=== PATIENT | male | born 1980 | race Two or more races ===

== ENCOUNTER 2020-07-21 12:35 | Inpatient (IN) | payer MEDICAID, OTHER ==
[~2020-07-21] VITALS: Ht 172.7 cm; Wt 91.0 kg
[2020-07-21] MEDS ORDERED: SODIUM CHLORIDE 0.9% 1,000 ML IV ONE (13:00)
[2020-07-21 13:38] LABS: Basophils # (auto) 0 10 ^3/uL (0-0.2); Basophils % (auto) 0.1 % (0.0-2.0); Eosinophils # (auto) 0 10 ^3/uL (0-0.8); Hematocrit 40.1 % (41.0-53.0); Lymphocytes # (auto) 1.1 10 ^3/uL (0.4-5.4); Lymphocytes % (auto) 6.7 % (10.0-50.0); Mean Corpuscular Hemoglobin 31.7 pg (28.0-32.0); Mean Corpuscular Hgb Conc. 34.9 g/dL (32.0-36.0); Mean Corpuscular Volume 90.8 fL (80.0-100.0); Monocytes # (auto) 0.5 10 ^3/uL (0-1.3); Monocytes % (auto) 2.8 % (0.0-12.0); Neutrophils # (auto) 14.5 10 ^3/uL (1.6-8.6); Neutrophils % (auto) 90.4 % (37.0-80.0); Nucleated Red Blood Cells % 0.2 %; Red Blood Cells 4.42 10^6/uL (4.5-5.90); Red Cell Distribution Width 13.6 % (11.8-14.3)
[2020-07-21 13:54] LABS: Carbon Dioxide 22 mmol/L (21-32); Chloride 103 mmol/L (98-107); Potassium 3.3 mmol/L (3.5-5.1); Sodium 138 mmol/L (136-145)
[2020-07-21 13:55] LABS: Albumin 3.1 g/dL (3.4-5.0); Anion Gap 13 (5-15); Blood Urea Nitrogen 24 mg/dL (7-18); Calcium 8.9 mg/dL (8.5-10.1); Glucose 107 mg/dL (74-106)
[2020-07-21 14:02] LABS: Alanine Aminotransferase 49 U/L (16-61); Alkaline Phosphatase 96 U/L (45-117); Aspartate Aminotransferase 75 U/L (15-37); BUN/Creatinine Ratio 20.7; Bilirubin, Total 0.4 mg/dL (0.2-1.0); GFR African American 90 mL/min; GFR Non-African American 74 mL/min; Lactate Dehydrogenase 952 U/L (87-241); Total Protein 7.6 g/dL (6.4-8.2)
[2020-07-21 14:06] LABS: Lactic Acid w/Reflex 2.8 mmol/L (0.4-2.0)
[2020-07-21] MEDS ORDERED: POTASSIUM CHL 20 Meq TABLET PO ONE (14:45)
[2020-07-21] MEDS ORDERED: ALBUTEROL SULF HFA 90MCG INH 200DOSE IN PRN (14:45)
[2020-07-21] MEDS ORDERED: NITROGLYCERIN 0.4 MG SL TAB SL PRN (14:45)
[2020-07-21] MEDS ORDERED: MORPHINE SULFATE INJECTION 2 MG/ML SYRG IV PRN (14:45)
[2020-07-21] MEDS ORDERED: IOHEXOL 350 MG/ML 100ML IJ ONE (15:24)
[2020-07-21] MEDS ORDERED: ETOMIDATE (2MG/ML) 20ML VIAL IV ONE ×2 (16:06→16:15)
[2020-07-21] MEDS ORDERED: SUCCINYLCHOLINE CHLORIDE 20 MG/ML 10ML VIAL IV ONE ×2 (16:06→16:15)
[2020-07-21] MEDS ORDERED: MIDAZOLAM DRIP 50 mg/50mL 50 ML IV ONE (16:08)
[2020-07-21] MEDS ORDERED: PROPOFOL 100 ML IV ONE (16:23)
[2020-07-21] MEDS ORDERED: fentaNYL Drip 2500mCg/250mlNS 250 ML IV ONE (16:23)
[2020-07-21] MEDS ORDERED: FUROSEMIDE 20 MG/2 ML VIAL IV ONE (16:45)
[2020-07-21] MEDS ORDERED: NOREPINEPHRINE 8 MG/250ML KIT 250 ML IV ONE (16:45)
[2020-07-21] MEDS: MIDAZOLAM DRIP 50 mg/50mL 50 ML IV SCH ×2 (16:55→18:51)
[2020-07-21 17:01] VITALS: BP 152/73
[2020-07-21] MEDS: PROPOFOL 100 ML IV SCH ×2 (17:04→18:50)
[2020-07-21] MEDS: fentaNYL Drip 2500mCg/250mlNS 250 ML IV SCH (17:05)
[2020-07-21] MEDS: NOREPINEPHRINE 8 MG/250ML KIT 250 ML IV SCH (17:20)
[2020-07-21] MEDS: PIPERACILLIN-TAZOB 3.375GM 100 ML IV SCH (17:35)
[2020-07-21] MEDS ORDERED: REMDESIVIR PER PHARMACY 0 ML IV SCH (18:15)
[2020-07-21 19:30] LABS: Urine Bacteria NONE SEEN /hpf (None Seen); Urine Blood 1+ /uL (Negative); Urine Specific Gravity 1.038 (1.001-1.035); Urine WBC 3 /hpf (0 - 3)
[2020-07-21 19:56] VITALS: BP 99/44
[2020-07-21] MEDS ORDERED: REMDESIVIR 200 MG in NS 210ml LOADING DOSE ADULT IV ONE (20:00)
[2020-07-21 20:54] LABS: Basophils # (auto) 0 10 ^3/uL (0-0.2); Basophils % (auto) 0.1 % (0.0-2.0); Eosinophils # (auto) 0 10 ^3/uL (0-0.8); Hematocrit 38.3 % (41.0-53.0); Lymphocytes # (auto) 1.1 10 ^3/uL (0.4-5.4); Lymphocytes % (auto) 7.3 % (10.0-50.0); Mean Corpuscular Hemoglobin 31.2 pg (28.0-32.0); Mean Corpuscular Hgb Conc. 34.1 g/dL (32.0-36.0); Mean Corpuscular Volume 91.7 fL (80.0-100.0); Monocytes # (auto) 0.4 10 ^3/uL (0-1.3); Monocytes % (auto) 2.5 % (0.0-12.0); Neutrophils # (auto) 13.5 10 ^3/uL (1.6-8.6); Neutrophils % (auto) 90.1 % (37.0-80.0); Nucleated Red Blood Cells % 0.1 %; Red Blood Cells 4.18 10^6/uL (4.5-5.90); Red Cell Distribution Width 13.9 % (11.8-14.3)
[2020-07-21 21:18] LABS: Calcium 8.1 mg/dL (8.5-10.1); Magnesium 2.4 mg/dL (1.6-2.6); Potassium 4.1 mmol/L (3.5-5.1)
[2020-07-21 21:23] LABS: Lactic Acid w/Reflex 2.1 mmol/L (0.4-2.0)
[2020-07-21 21:31] LABS: Albumin 2.7 g/dL (3.4-5.0); BUN/Creatinine Ratio 17.6; Bilirubin, Total 0.8 mg/dL (0.2-1.0); CRP High Sensitivity 14.9 mg/dL (< 0.3); Total Protein 6.5 g/dL (6.4-8.2)
[2020-07-21] MEDS ORDERED: methylPREDNISolone SOD SUCC 40 MG/ML VL IV ONE (22:00)
[2020-07-21] MEDS ORDERED: ACETAMINOPHEN 650 mg PER 20.3 mL UD PO ONE (22:00)
[2020-07-21] MEDS ORDERED: diphenhdrAMINE HCL 50 MG/1 ML VL IV ONE (22:00)
[2020-07-21] MEDS ORDERED: TOCILIZUMAB 400 MG in SODIUM CHL 0.9% 80 ML IV ONE (22:30)
[2020-07-21 22:45] VITALS: BP 118/63
[2020-07-21] MEDS: BUDESONIDE (INHALATION) 180 MCG IH IN SCH (22:45)
[2020-07-21] MEDS: ENOXAPARIN SOD 40 MG/0.4 ML SYRINGE SC SCH (22:48)
[2020-07-21 23:30] VITALS: BP 107/57
[2020-07-21 23:45] VITALS: BP 111/61
[2020-07-22] VITALS (97 sets, daily range): BP systolic 97–144; BP diastolic 47–119
[2020-07-22] MEDS: PIPERACILLIN-TAZOB 3.375GM 100 ML IV SCH ×4 (00:24→19:17)
[2020-07-22] MEDS: PROPOFOL 100 ML IV SCH ×3 (00:25→21:30)
[2020-07-22] MEDS: MIDAZOLAM DRIP 50 mg/50mL 50 ML IV SCH ×6 (00:26→22:57)
[2020-07-22 04:54] LABS: Basophils # (auto) 0 10 ^3/uL (0-0.2); Basophils % (auto) 0.1 % (0.0-2.0); Eosinophils # (auto) 0 10 ^3/uL (0-0.8); Hematocrit 39.9 % (41.0-53.0); Hemoglobin 13.4 g/dL (13.5-17.5); Lymphocytes # (auto) 0.6 10 ^3/uL (0.4-5.4); Lymphocytes % (auto) 4.5 % (10.0-50.0); Mean Corpuscular Hemoglobin 31.4 pg (28.0-32.0); Mean Corpuscular Hgb Conc. 33.7 g/dL (32.0-36.0); Mean Corpuscular Volume 93.3 fL (80.0-100.0); Monocytes # (auto) 0.4 10 ^3/uL (0-1.3); Monocytes % (auto) 2.6 % (0.0-12.0); Neutrophils # (auto) 12.9 10 ^3/uL (1.6-8.6); Neutrophils % (auto) 92.8 % (37.0-80.0); Nucleated Red Blood Cells % 0.1 %; Red Blood Cells 4.28 10^6/uL (4.5-5.90); Red Cell Distribution Width 14.1 % (11.8-14.3); White Blood Cell 13.9 10^3/uL (4.4-10.8)
[2020-07-22 05:25] LABS: Albumin 2.8 g/dL (3.4-5.0); Calcium 8.2 mg/dL (8.5-10.1); Potassium 4.6 mmol/L (3.5-5.1)
[2020-07-22 05:28] LABS: BUN/Creatinine Ratio 17.2; Bilirubin, Total 0.5 mg/dL (0.2-1.0)
[2020-07-22] MEDS: fentaNYL Drip 2500mCg/250mlNS 250 ML IV SCH ×2 (05:38→22:16)
[2020-07-22] MEDS ORDERED: IVERMECTIN 3 MG TAB PO ONE (07:00)
[2020-07-22] MEDS: BUDESONIDE (INHALATION) 180 MCG IH IN SCH (10:00)
[2020-07-22] MEDS: ENOXAPARIN SOD 40 MG/0.4 ML SYRINGE SC SCH ×2 (10:14→21:29)
[2020-07-22] MEDS: CHOLECALCIFEROL (VITD3) 2,000 UNIT CAP/TAB PO SCH (10:15)
[2020-07-22] MEDS: ASCORBIC ACID 1,000 MG TAB PO SCH (10:15)
[2020-07-22] MEDS: FLORASTOR (S. BOULARDII) 250 MG CAP PO SCH (10:15)
[2020-07-22] MEDS: DexAMETHasone SOD PHOS 10MG/1ML VIAL INJ IV SCH (10:15)
[2020-07-22] MEDS: ZINC SULFATE 220mg CAP or TAB PO SCH (10:15)
[2020-07-22] MEDS: NOREPINEPHRINE 8 MG/250ML KIT 250 ML IV SCH (15:14)
[2020-07-22] MEDS: REMDESIVIR 100mg 100 MG in SODIUM CHL 0.9% 230 ML IV SCH (15:30)
[2020-07-23] VITALS (87 sets, daily range): BP systolic 94–129; BP diastolic 46–78
[2020-07-23] MEDS: PIPERACILLIN-TAZOB 3.375GM 100 ML IV SCH ×4 (00:41→18:22)
[2020-07-23] MEDS: PROPOFOL 100 ML IV SCH ×4 (01:10→22:26)
[2020-07-23] MEDS: NOREPINEPHRINE 8 MG/250ML KIT 250 ML IV SCH (02:10)
[2020-07-23 05:15] LABS: Basophils # (auto) 0 10 ^3/uL (0-0.2); Basophils % (auto) 0.3 % (0.0-2.0); Eosinophils # (auto) 0 10 ^3/uL (0-0.8); Hematocrit 38.6 % (41.0-53.0); Lymphocytes # (auto) 0.9 10 ^3/uL (0.4-5.4); Lymphocytes % (auto) 5.3 % (10.0-50.0); Mean Corpuscular Hemoglobin 31.3 pg (28.0-32.0); Mean Corpuscular Hgb Conc. 33.6 g/dL (32.0-36.0); Mean Corpuscular Volume 93.3 fL (80.0-100.0); Monocytes # (auto) 0.8 10 ^3/uL (0-1.3); Monocytes % (auto) 4.9 % (0.0-12.0); Neutrophils # (auto) 15.2 10 ^3/uL (1.6-8.6); Neutrophils % (auto) 89.5 % (37.0-80.0); Nucleated Red Blood Cells % 0.1 %; Red Blood Cells 4.14 10^6/uL (4.5-5.90); Red Cell Distribution Width 14.2 % (11.8-14.3)
[2020-07-23 05:35] LABS: Potassium 4.7 mmol/L (3.5-5.1)
[2020-07-23 05:41] LABS: Albumin 2.6 g/dL (3.4-5.0); BUN/Creatinine Ratio 21.2; Bilirubin, Total 0.5 mg/dL (0.2-1.0); Calcium 8.5 mg/dL (8.5-10.1); Total Protein 6.6 g/dL (6.4-8.2)
[2020-07-23] MEDS: MIDAZOLAM DRIP 50 mg/50mL 50 ML IV SCH ×3 (05:43→17:26)
[2020-07-23] MEDS: BUDESONIDE (INHALATION) 0.5 MG/2 ML NEB NEB SCH ×2 (06:17→18:53)
[2020-07-23] MEDS: ALBUTEROL SULF 2.5 MG/0.5ML(0.5%) NEB SOLN NEB PRN ×2 (06:17→18:53)
[2020-07-23] MEDS: fentaNYL Drip 2500mCg/250mlNS 250 ML IV SCH ×2 (09:30→19:15)
[2020-07-23] MEDS: DexAMETHasone SOD PHOS 10MG/1ML VIAL INJ IV SCH (10:19)
[2020-07-23] MEDS: ZINC SULFATE 220mg CAP or TAB PO SCH (10:19)
[2020-07-23] MEDS: ASCORBIC ACID 1,000 MG TAB PO SCH (10:21)
[2020-07-23] MEDS: ENOXAPARIN SOD 40 MG/0.4 ML SYRINGE SC SCH ×2 (10:21→22:27)
[2020-07-23] MEDS: CHOLECALCIFEROL (VITD3) 2,000 UNIT CAP/TAB PO SCH (10:21)
[2020-07-23] MEDS: FLORASTOR (S. BOULARDII) 250 MG CAP PO SCH (10:21)
[2020-07-23] MEDS ORDERED: SENNA 8.6 MG TAB PO ONE (11:15)
[2020-07-23] MEDS: REMDESIVIR 100mg 100 MG in SODIUM CHL 0.9% 230 ML IV SCH (15:29)
[2020-07-23] MEDS: SENNA 8.6 MG TAB PO SCH (22:27)
[2020-07-24] VITALS (87 sets, daily range): BP systolic 91–127; BP diastolic 48–82
[2020-07-24] MEDS: PROPOFOL 100 ML IV SCH ×4 (04:45→19:49)
[2020-07-24 05:48] LABS: Hematocrit 38.4 % (41.0-53.0); Mean Corpuscular Hemoglobin 31.6 pg (28.0-32.0); Mean Corpuscular Hgb Conc. 33.9 g/dL (32.0-36.0); Mean Corpuscular Volume 93.3 fL (80.0-100.0); Red Blood Cells 4.12 10^6/uL (4.5-5.90); Red Cell Distribution Width 14.1 % (11.8-14.3); White Blood Cell 13.5 10^3/uL (4.4-10.8)
[2020-07-24] MEDS: PIPERACILLIN-TAZOB 3.375GM 100 ML IV SCH ×3 (06:00→12:00)
[2020-07-24 06:05] LABS: Albumin 2.4 g/dL (3.4-5.0); Calcium 7.9 mg/dL (8.5-10.1); Potassium 4.7 mmol/L (3.5-5.1)
[2020-07-24 06:07] LABS: BUN/Creatinine Ratio 22.2; Bilirubin, Total 0.7 mg/dL (0.2-1.0); Total Protein 6.2 g/dL (6.4-8.2)
[2020-07-24 06:23] LABS: Basophils % (manual) 0 (0.0-2.0); Blast Cells 0; Monocytes % (manual) 0 (0-12); Promyelocytes % 0; Reactive Lymphocytes 0
[2020-07-24] MEDS: ALBUTEROL SULF 2.5 MG/0.5ML(0.5%) NEB SOLN NEB PRN (06:35)
[2020-07-24] MEDS: BUDESONIDE (INHALATION) 0.5 MG/2 ML NEB NEB SCH ×2 (06:36→18:37)
[2020-07-24 06:45] LABS: Band Neutrophils % (manual) 8; Eosinophils % (manual) 1 (0-7); Lymphocytes % (manual) 10 (10.0-50.0); Metamyelocytes % 3; Myelocytes % 1
[2020-07-24] MEDS: fentaNYL Drip 2500mCg/250mlNS 250 ML IV SCH ×2 (07:45→22:33)
[2020-07-24] MEDS: MIDAZOLAM DRIP 50 mg/50mL 50 ML IV SCH ×6 (08:03→23:37)
[2020-07-24] MEDS: ENOXAPARIN SOD 40 MG/0.4 ML SYRINGE SC SCH ×2 (09:57→22:27)
[2020-07-24] MEDS: DexAMETHasone SOD PHOS 10MG/1ML VIAL INJ IV SCH (09:57)
[2020-07-24] MEDS: ZINC SULFATE 220mg CAP or TAB PO SCH (09:57)
[2020-07-24] MEDS: FLORASTOR (S. BOULARDII) 250 MG CAP PO SCH (09:57)
[2020-07-24] MEDS: ASCORBIC ACID 1,000 MG TAB PO SCH (09:57)
[2020-07-24] MEDS: CHOLECALCIFEROL (VITD3) 2,000 UNIT CAP/TAB PO SCH (09:57)
[2020-07-24] MEDS: NOREPINEPHRINE 8 MG/250ML KIT 250 ML IV SCH (11:42)
[2020-07-24] MEDS: REMDESIVIR 100mg 100 MG in SODIUM CHL 0.9% 230 ML IV SCH (15:00)
[2020-07-24] MEDS: SENNA 8.6 MG TAB PO SCH (22:27)
[2020-07-25] VITALS (104 sets, daily range): BP systolic 97–131; BP diastolic 45–85
[2020-07-25] MEDS: PIPERACILLIN-TAZOB 3.375GM 100 ML IV SCH ×3 (00:05→17:32)
[2020-07-25 05:54] LABS: Hemoglobin 14.3 g/dL (13.5-17.5); Mean Corpuscular Hemoglobin 31.8 pg (28.0-32.0); Mean Corpuscular Volume 93.4 fL (80.0-100.0); Red Cell Distribution Width 13.6 % (11.8-14.3); White Blood Cell 13.4 10^3/uL (4.4-10.8)
[2020-07-25 06:10] LABS: Albumin 2.6 g/dL (3.4-5.0); Calcium 8.1 mg/dL (8.5-10.1); Potassium 4.6 mmol/L (3.5-5.1)
[2020-07-25 06:11] LABS: Basophils % (manual) 0 (0.0-2.0); Blast Cells 0; Promyelocytes % 0; Reactive Lymphocytes 0
[2020-07-25 06:19] LABS: BUN/Creatinine Ratio 18.5; Bilirubin, Total 0.8 mg/dL (0.2-1.0); CRP High Sensitivity 2.43 mg/dL (< 0.3); Total Protein 6.4 g/dL (6.4-8.2)
[2020-07-25] MEDS: ALBUTEROL SULF 2.5 MG/0.5ML(0.5%) NEB SOLN NEB PRN (06:54)
[2020-07-25] MEDS: BUDESONIDE (INHALATION) 0.5 MG/2 ML NEB NEB SCH ×2 (06:54→22:09)
[2020-07-25] MEDS: REMDESIVIR 100mg 100 MG in SODIUM CHL 0.9% 230 ML IV SCH ×2 (07:06→15:00)
[2020-07-25] MEDS: PROPOFOL 100 ML IV SCH ×5 (08:24→22:47)
[2020-07-25] MEDS: fentaNYL Drip 2500mCg/250mlNS 250 ML IV SCH ×2 (08:25→20:05)
[2020-07-25 09:49] LABS: Band Neutrophils % (manual) 6; Eosinophils % (manual) 1 (0-7); Lymphocytes % (manual) 12 (10.0-50.0); Metamyelocytes % 1; Monocytes % (manual) 1 (0-12); Myelocytes % 2
[2020-07-25] MEDS: DexAMETHasone SOD PHOS 10MG/1ML VIAL INJ IV SCH (11:01)
[2020-07-25] MEDS: ZINC SULFATE 220mg CAP or TAB PO SCH (11:02)
[2020-07-25] MEDS: FLORASTOR (S. BOULARDII) 250 MG CAP PO SCH (11:02)
[2020-07-25] MEDS: ASCORBIC ACID 1,000 MG TAB PO SCH (11:03)
[2020-07-25] MEDS: ENOXAPARIN SOD 40 MG/0.4 ML SYRINGE SC SCH ×2 (11:03→20:06)
[2020-07-25] MEDS: CHOLECALCIFEROL (VITD3) 2,000 UNIT CAP/TAB PO SCH (11:03)
[2020-07-25] MEDS: MIDAZOLAM DRIP 50 mg/50mL 50 ML IV SCH ×3 (15:15→22:47)
[2020-07-25] MEDS: SENNA 8.6 MG TAB PO SCH (20:06)
[2020-07-26] VITALS (105 sets, daily range): BP systolic 83–129; BP diastolic 41–79
[2020-07-26] MEDS: MIDAZOLAM DRIP 50 mg/50mL 50 ML IV SCH ×6 (02:30→20:50)
[2020-07-26] MEDS: PROPOFOL 100 ML IV SCH ×6 (03:23→23:35)
[2020-07-26] MEDS: ALBUTEROL SULF 2.5 MG/0.5ML(0.5%) NEB SOLN NEB PRN ×3 (04:27→14:22)
[2020-07-26 04:35] LABS: Basophils # (auto) 0.1 10 ^3/uL (0-0.2); Basophils % (auto) 0.6 % (0.0-2.0); Eosinophils # (auto) 0.3 10 ^3/uL (0-0.8); Eosinophils % (auto) 2.5 % (0.0-7.0); Hematocrit 41.7 % (41.0-53.0); Hemoglobin 14.5 g/dL (13.5-17.5); Lymphocytes # (auto) 1.2 10 ^3/uL (0.4-5.4); Lymphocytes % (auto) 8.5 % (10.0-50.0); Mean Corpuscular Hgb Conc. 34.8 g/dL (32.0-36.0); Monocytes # (auto) 0.3 10 ^3/uL (0-1.3); Monocytes % (auto) 2.2 % (0.0-12.0); Neutrophils # (auto) 11.8 10 ^3/uL (1.6-8.6); Neutrophils % (auto) 86.2 % (37.0-80.0); Nucleated Red Blood Cells % 0.2 %; Red Blood Cells 4.53 10^6/uL (4.5-5.90); Red Cell Distribution Width 13.4 % (11.8-14.3); White Blood Cell 13.7 10^3/uL (4.4-10.8)
[2020-07-26 04:48] LABS: BUN/Creatinine Ratio 23.3; Calcium 7.7 mg/dL (8.5-10.1); Potassium 4.6 mmol/L (3.5-5.1)
[2020-07-26] MEDS: PIPERACILLIN-TAZOB 3.375GM 100 ML IV SCH ×4 (06:00→17:45)
[2020-07-26] MEDS: NOREPINEPHRINE 8 MG/250ML KIT 250 ML IV SCH ×2 (06:45→08:10)
[2020-07-26] MEDS: BUDESONIDE (INHALATION) 0.5 MG/2 ML NEB NEB SCH ×2 (06:58→18:38)
[2020-07-26] MEDS: ZINC SULFATE 220mg CAP or TAB PO SCH (09:57)
[2020-07-26] MEDS: CHOLECALCIFEROL (VITD3) 2,000 UNIT CAP/TAB PO SCH (09:57)
[2020-07-26] MEDS: ASCORBIC ACID 1,000 MG TAB PO SCH (09:57)
[2020-07-26] MEDS: FLORASTOR (S. BOULARDII) 250 MG CAP PO SCH (09:57)
[2020-07-26] MEDS: ENOXAPARIN SOD 40 MG/0.4 ML SYRINGE SC SCH ×2 (09:57→22:00)
[2020-07-26] MEDS: DexAMETHasone SOD PHOS 10MG/1ML VIAL INJ IV SCH (09:57)
[2020-07-26] MEDS: fentaNYL Drip 2500mCg/250mlNS 250 ML IV SCH ×2 (09:58→22:15)
[2020-07-26] MEDS ORDERED: PANTOPRAZOLE 40 MG/10 ML VIAL INJ IV ONE ×2 (13:11→13:15)
[2020-07-26] MEDS: SENNA 8.6 MG TAB PO SCH (22:00)
[2020-07-27] VITALS (104 sets, daily range): BP systolic 89–121; BP diastolic 46–95
[2020-07-27] MEDS: MIDAZOLAM DRIP 50 mg/50mL 50 ML IV SCH ×7 (02:15→23:27)
[2020-07-27] MEDS: PIPERACILLIN-TAZOB 3.375GM 100 ML IV SCH ×3 (06:00→17:52)
[2020-07-27] MEDS: BUDESONIDE (INHALATION) 0.5 MG/2 ML NEB NEB SCH ×2 (06:14→22:25)
[2020-07-27] MEDS: NOREPINEPHRINE 8 MG/250ML KIT 250 ML IV SCH (06:24)
[2020-07-27] MEDS: PROPOFOL 100 ML IV SCH ×5 (06:26→19:30)
[2020-07-27] MEDS: ZINC SULFATE 220mg CAP or TAB PO SCH (09:58)
[2020-07-27] MEDS: PANTOPRAZOLE 40 MG/10 ML VIAL INJ IV SCH (09:58)
[2020-07-27] MEDS: DexAMETHasone SOD PHOS 10MG/1ML VIAL INJ IV SCH (09:58)
[2020-07-27] MEDS: CHOLECALCIFEROL (VITD3) 2,000 UNIT CAP/TAB PO SCH (09:58)
[2020-07-27] MEDS: FLORASTOR (S. BOULARDII) 250 MG CAP PO SCH (09:58)
[2020-07-27] MEDS: ENOXAPARIN SOD 40 MG/0.4 ML SYRINGE SC SCH ×2 (09:58→22:00)
[2020-07-27] MEDS: ASCORBIC ACID 1,000 MG TAB PO SCH (09:58)
[2020-07-27] MEDS: fentaNYL Drip 2500mCg/250mlNS 250 ML IV SCH ×2 (10:45→17:55)
[2020-07-27] MEDS: SENNA 8.6 MG TAB PO SCH (22:00)
[2020-07-27] MEDS: ALBUTEROL SULF 2.5 MG/0.5ML(0.5%) NEB SOLN NEB PRN (22:25)
[2020-07-28] VITALS (102 sets, daily range): BP systolic 86–127; BP diastolic 48–76
[2020-07-28] MEDS: NOREPINEPHRINE 8 MG/250ML KIT 250 ML IV SCH (04:38)
[2020-07-28] MEDS: BUDESONIDE (INHALATION) 0.5 MG/2 ML NEB NEB SCH ×2 (05:56→22:41)
[2020-07-28] MEDS: ALBUTEROL SULF 2.5 MG/0.5ML(0.5%) NEB SOLN NEB PRN ×2 (05:56→22:41)
[2020-07-28] MEDS: PROPOFOL 100 ML IV SCH ×5 (06:00→20:53)
[2020-07-28] MEDS: PIPERACILLIN-TAZOB 3.375GM 100 ML IV SCH ×5 (06:00→23:55)
[2020-07-28 06:02] LABS: Basophils # (auto) 0 10 ^3/uL (0-0.2); Basophils % (auto) 0.3 % (0.0-2.0); Eosinophils # (auto) 0.2 10 ^3/uL (0-0.8); Eosinophils % (auto) 1.9 % (0.0-7.0); Hematocrit 40.2 % (41.0-53.0); Hemoglobin 14.3 g/dL (13.5-17.5); Lymphocytes # (auto) 1.1 10 ^3/uL (0.4-5.4); Lymphocytes % (auto) 9.7 % (10.0-50.0); Mean Corpuscular Hemoglobin 32.7 pg (28.0-32.0); Mean Corpuscular Hgb Conc. 35.6 g/dL (32.0-36.0); Mean Corpuscular Volume 91.6 fL (80.0-100.0); Monocytes # (auto) 0.4 10 ^3/uL (0-1.3); Monocytes % (auto) 3.3 % (0.0-12.0); Neutrophils # (auto) 9.9 10 ^3/uL (1.6-8.6); Neutrophils % (auto) 84.8 % (37.0-80.0); Nucleated Red Blood Cells % 0.2 %; Red Blood Cells 4.39 10^6/uL (4.5-5.90); Red Cell Distribution Width 13.9 % (11.8-14.3); White Blood Cell 11.7 10^3/uL (4.4-10.8)
[2020-07-28 09:00] LABS: BUN/Creatinine Ratio 30.9; Calcium 7.9 mg/dL (8.5-10.1); Potassium 3.7 mmol/L (3.5-5.1)
[2020-07-28] MEDS: DexAMETHasone SOD PHOS 10MG/1ML VIAL INJ IV SCH (09:04)
[2020-07-28] MEDS: PANTOPRAZOLE 40 MG/10 ML VIAL INJ IV SCH (09:05)
[2020-07-28] MEDS: ZINC SULFATE 220mg CAP or TAB PO SCH (09:05)
[2020-07-28] MEDS: ASCORBIC ACID 1,000 MG TAB PO SCH (09:05)
[2020-07-28] MEDS: CHOLECALCIFEROL (VITD3) 2,000 UNIT CAP/TAB PO SCH (09:05)
[2020-07-28] MEDS: ENOXAPARIN SOD 40 MG/0.4 ML SYRINGE SC SCH ×2 (09:05→21:54)
[2020-07-28] MEDS: FLORASTOR (S. BOULARDII) 250 MG CAP PO SCH (09:05)
[2020-07-28] MEDS: MIDAZOLAM DRIP 50 mg/50mL 50 ML IV SCH ×3 (10:27→21:38)
[2020-07-28] MEDS ORDERED: FUROSEMIDE 20 MG/2 ML VIAL IV ONE (12:00)
[2020-07-28 14:37] LABS: Urine Bacteria NONE SEEN /hpf (None Seen); Urine Blood 2+ /uL (Negative); Urine Budding Yeast MODERATE /hpf (None Seen); Urine Specific Gravity 1.015 (1.001-1.035); Urine WBC 2 /hpf (0 - 3)
[2020-07-28] MEDS: fentaNYL Drip 2500mCg/250mlNS 250 ML IV SCH (18:07)
[2020-07-28] MEDS: SENNA 8.6 MG TAB PO SCH (21:53)
[2020-07-29] VITALS (105 sets, daily range): BP systolic 84–133; BP diastolic 40–80
[2020-07-29] MEDS: fentaNYL Drip 2500mCg/250mlNS 250 ML IV SCH ×3 (00:15→18:30)
[2020-07-29] MEDS: PROPOFOL 100 ML IV SCH ×6 (00:16→20:11)
[2020-07-29] MEDS: NOREPINEPHRINE 8 MG/250ML KIT 250 ML IV SCH (02:52)
[2020-07-29] MEDS: MIDAZOLAM DRIP 50 mg/50mL 50 ML IV SCH ×4 (03:22→19:15)
[2020-07-29 04:48] LABS: Basophils # (auto) 0 10 ^3/uL (0-0.2); Basophils % (auto) 0.5 % (0.0-2.0); Eosinophils # (auto) 0.2 10 ^3/uL (0-0.8); Eosinophils % (auto) 1.7 % (0.0-7.0); Hematocrit 38.3 % (41.0-53.0); Hemoglobin 13.6 g/dL (13.5-17.5); Lymphocytes # (auto) 1.1 10 ^3/uL (0.4-5.4); Lymphocytes % (auto) 10.7 % (10.0-50.0); Mean Corpuscular Hemoglobin 32.7 pg (28.0-32.0); Mean Corpuscular Hgb Conc. 35.6 g/dL (32.0-36.0); Mean Corpuscular Volume 91.8 fL (80.0-100.0); Monocytes # (auto) 0.4 10 ^3/uL (0-1.3); Monocytes % (auto) 4.3 % (0.0-12.0); Neutrophils # (auto) 8.6 10 ^3/uL (1.6-8.6); Neutrophils % (auto) 82.8 % (37.0-80.0); Nucleated Red Blood Cells % 0.2 %; Red Blood Cells 4.17 10^6/uL (4.5-5.90); Red Cell Distribution Width 13.7 % (11.8-14.3); White Blood Cell 10.3 10^3/uL (4.4-10.8)
[2020-07-29 05:06] LABS: Calcium 7.4 mg/dL (8.5-10.1); Potassium 3.6 mmol/L (3.5-5.1)
[2020-07-29 05:09] LABS: BUN/Creatinine Ratio 28.8; CRP High Sensitivity 0.85 mg/dL (< 0.3)
[2020-07-29] MEDS: PIPERACILLIN-TAZOB 3.375GM 100 ML IV SCH ×4 (06:08→23:42)
[2020-07-29] MEDS: BUDESONIDE (INHALATION) 0.5 MG/2 ML NEB NEB SCH ×2 (06:31→22:07)
[2020-07-29] MEDS: ALBUTEROL SULF 2.5 MG/0.5ML(0.5%) NEB SOLN NEB PRN ×2 (06:31→22:07)
[2020-07-29] MEDS: FLORASTOR (S. BOULARDII) 250 MG CAP PO SCH (10:23)
[2020-07-29] MEDS: DexAMETHasone SOD PHOS 10MG/1ML VIAL INJ IV SCH (10:24)
[2020-07-29] MEDS: PANTOPRAZOLE 40 MG/10 ML VIAL INJ IV SCH (10:24)
[2020-07-29] MEDS: CHOLECALCIFEROL (VITD3) 2,000 UNIT CAP/TAB PO SCH (10:24)
[2020-07-29] MEDS: FUROSEMIDE 20 MG/2 ML VIAL IV SCH (10:24)
[2020-07-29] MEDS: ENOXAPARIN SOD 40 MG/0.4 ML SYRINGE SC SCH ×2 (10:24→22:10)
[2020-07-29] MEDS: ZINC SULFATE 220mg CAP or TAB PO SCH (10:24)
[2020-07-29] MEDS: ASCORBIC ACID 1,000 MG TAB PO SCH (10:25)
[2020-07-29] MEDS: SENNA 8.6 MG TAB PO SCH (22:10)
[2020-07-30] VITALS (98 sets, daily range): BP systolic 89–121; BP diastolic 50–81
[2020-07-30] MEDS: PROPOFOL 100 ML IV SCH ×6 (00:10→19:54)
[2020-07-30] MEDS: MIDAZOLAM DRIP 50 mg/50mL 50 ML IV SCH ×7 (00:15→23:00)
[2020-07-30] MEDS: NOREPINEPHRINE 8 MG/250ML KIT 250 ML IV SCH ×2 (01:06→23:20)
[2020-07-30 06:00] LABS: Basophils # (auto) 0 10 ^3/uL (0-0.2); Basophils % (auto) 0.4 % (0.0-2.0); Eosinophils # (auto) 0.2 10 ^3/uL (0-0.8); Eosinophils % (auto) 1.6 % (0.0-7.0); Hematocrit 40.3 % (41.0-53.0); Hemoglobin 14.3 g/dL (13.5-17.5); Lymphocytes # (auto) 1.2 10 ^3/uL (0.4-5.4); Lymphocytes % (auto) 11.1 % (10.0-50.0); Mean Corpuscular Hemoglobin 32.6 pg (28.0-32.0); Mean Corpuscular Hgb Conc. 35.5 g/dL (32.0-36.0); Mean Corpuscular Volume 91.8 fL (80.0-100.0); Monocytes # (auto) 0.5 10 ^3/uL (0-1.3); Monocytes % (auto) 4.7 % (0.0-12.0); Neutrophils % (auto) 82.2 % (37.0-80.0); Nucleated Red Blood Cells % 0.2 %; Red Blood Cells 4.39 10^6/uL (4.5-5.90); Red Cell Distribution Width 13.7 % (11.8-14.3); White Blood Cell 10.9 10^3/uL (4.4-10.8)
[2020-07-30] MEDS: PIPERACILLIN-TAZOB 3.375GM 100 ML IV SCH ×4 (06:06→23:39)
[2020-07-30] MEDS: BUDESONIDE (INHALATION) 0.5 MG/2 ML NEB NEB SCH ×2 (06:17→22:23)
[2020-07-30] MEDS: ALBUTEROL SULF 2.5 MG/0.5ML(0.5%) NEB SOLN NEB PRN (06:17)
[2020-07-30 06:23] LABS: Potassium 3.6 mmol/L (3.5-5.1)
[2020-07-30 06:30] LABS: BUN/Creatinine Ratio 25.4; Calcium 7.9 mg/dL (8.5-10.1)
[2020-07-30] MEDS: FLORASTOR (S. BOULARDII) 250 MG CAP PO SCH (10:00)
[2020-07-30] MEDS: ZINC SULFATE 220mg CAP or TAB PO SCH (10:37)
[2020-07-30] MEDS: PANTOPRAZOLE 40 MG/10 ML VIAL INJ IV SCH (10:37)
[2020-07-30] MEDS: FUROSEMIDE 20 MG/2 ML VIAL IV SCH (10:37)
[2020-07-30] MEDS: DexAMETHasone SOD PHOS 10MG/1ML VIAL INJ IV SCH (10:37)
[2020-07-30] MEDS: ENOXAPARIN SOD 40 MG/0.4 ML SYRINGE SC SCH ×2 (10:38→21:59)
[2020-07-30] MEDS: CHOLECALCIFEROL (VITD3) 2,000 UNIT CAP/TAB PO SCH (10:38)
[2020-07-30] MEDS: ASCORBIC ACID 1,000 MG TAB PO SCH (10:38)
[2020-07-30] MEDS ORDERED: Jevity 1.2 Cal/Fiber 1 Liter GT SCH (11:15)
[2020-07-30] MEDS: METOCLOPRAMIDE HCL 5MG/ml INJ 2ml VIAL IV SCH ×2 (14:00→21:59)
[2020-07-30] MEDS: fentaNYL Drip 2500mCg/250mlNS 250 ML IV SCH (18:09)
[2020-07-30] MEDS: SENNA 8.6 MG TAB PO SCH (21:59)
[2020-07-31] VITALS (98 sets, daily range): BP systolic 75–122; BP diastolic 47–82
[2020-07-31] MEDS: PROPOFOL 100 ML IV SCH ×6 (03:30→20:37)
[2020-07-31 04:25] LABS: Basophils # (auto) 0.1 10 ^3/uL (0-0.2); Basophils % (auto) 0.8 % (0.0-2.0); Eosinophils # (auto) 0.2 10 ^3/uL (0-0.8); Eosinophils % (auto) 1.5 % (0.0-7.0); Hemoglobin 13.5 g/dL (13.5-17.5); Lymphocytes # (auto) 1.3 10 ^3/uL (0.4-5.4); Lymphocytes % (auto) 12.6 % (10.0-50.0); Mean Corpuscular Hemoglobin 32.4 pg (28.0-32.0); Mean Corpuscular Hgb Conc. 35.4 g/dL (32.0-36.0); Mean Corpuscular Volume 91.6 fL (80.0-100.0); Monocytes # (auto) 0.5 10 ^3/uL (0-1.3); Monocytes % (auto) 5.1 % (0.0-12.0); Neutrophils # (auto) 8.5 10 ^3/uL (1.6-8.6); Nucleated Red Blood Cells % 0.2 %; Red Blood Cells 4.16 10^6/uL (4.5-5.90); Red Cell Distribution Width 13.6 % (11.8-14.3); White Blood Cell 10.7 10^3/uL (4.4-10.8)
[2020-07-31] MEDS: fentaNYL Drip 2500mCg/250mlNS 250 ML IV SCH ×3 (04:42→16:39)
[2020-07-31 04:43] LABS: BUN/Creatinine Ratio 22.6; Calcium 7.2 mg/dL (8.5-10.1); Potassium 3.5 mmol/L (3.5-5.1)
[2020-07-31] MEDS: PIPERACILLIN-TAZOB 3.375GM 100 ML IV SCH ×3 (05:53→18:00)
[2020-07-31] MEDS: METOCLOPRAMIDE HCL 5MG/ml INJ 2ml VIAL IV SCH ×3 (05:55→22:04)
[2020-07-31] MEDS: MIDAZOLAM DRIP 50 mg/50mL 50 ML IV SCH ×4 (06:13→22:02)
[2020-07-31] MEDS: ALBUTEROL SULF 2.5 MG/0.5ML(0.5%) NEB SOLN NEB PRN ×2 (06:23→22:30)
[2020-07-31] MEDS: POTASSIUM EFFERVESENT TAB 25 MEQ GT SCH (10:00)
[2020-07-31] MEDS: ASCORBIC ACID 1,000 MG TAB PO SCH (10:00)
[2020-07-31] MEDS: ZINC SULFATE 220mg CAP or TAB PO SCH (10:00)
[2020-07-31] MEDS: PANTOPRAZOLE 40 MG/10 ML VIAL INJ IV SCH (10:00)
[2020-07-31] MEDS: BUDESONIDE (INHALATION) 0.5 MG/2 ML NEB NEB SCH ×2 (10:00→22:30)
[2020-07-31] MEDS: FUROSEMIDE 20 MG/2 ML VIAL IV SCH (10:00)
[2020-07-31] MEDS: CHOLECALCIFEROL (VITD3) 2,000 UNIT CAP/TAB PO SCH (10:00)
[2020-07-31] MEDS: DexAMETHasone SOD PHOS 10MG/1ML VIAL INJ IV SCH (10:00)
[2020-07-31] MEDS: FLORASTOR (S. BOULARDII) 250 MG CAP PO SCH (10:00)
[2020-07-31] MEDS: ENOXAPARIN SOD 40 MG/0.4 ML SYRINGE SC SCH ×2 (10:00→22:04)
[2020-07-31] MEDS: NOREPINEPHRINE 8 MG/250ML KIT 250 ML IV SCH (21:34)
[2020-07-31] MEDS: SENNA 8.6 MG TAB PO SCH (22:04)
[2020-08-01] VITALS (99 sets, daily range): BP systolic 87–131; BP diastolic 49–79
[2020-08-01] MEDS: PIPERACILLIN-TAZOB 3.375GM 100 ML IV SCH ×4 (00:11→18:00)
[2020-08-01] MEDS: MIDAZOLAM DRIP 50 mg/50mL 50 ML IV SCH ×6 (01:48→23:30)
[2020-08-01 04:28] LABS: Basophils # (auto) 0 10 ^3/uL (0-0.2); Basophils % (auto) 0.4 % (0.0-2.0); Eosinophils # (auto) 0 10 ^3/uL (0-0.8); Eosinophils % (auto) 0.5 % (0.0-7.0); Hematocrit 38.5 % (41.0-53.0); Hemoglobin 13.5 g/dL (13.5-17.5); Lymphocytes # (auto) 1.1 10 ^3/uL (0.4-5.4); Lymphocytes % (auto) 11.5 % (10.0-50.0); Mean Corpuscular Hemoglobin 32.1 pg (28.0-32.0); Mean Corpuscular Volume 91.5 fL (80.0-100.0); Monocytes # (auto) 0.6 10 ^3/uL (0-1.3); Monocytes % (auto) 5.9 % (0.0-12.0); Neutrophils # (auto) 7.7 10 ^3/uL (1.6-8.6); Neutrophils % (auto) 81.7 % (37.0-80.0); Nucleated Red Blood Cells % 0.1 %; Red Blood Cells 4.21 10^6/uL (4.5-5.90); Red Cell Distribution Width 13.5 % (11.8-14.3); White Blood Cell 9.4 10^3/uL (4.4-10.8)
[2020-08-01] MEDS: PROPOFOL 100 ML IV SCH ×6 (04:38→19:42)
[2020-08-01] MEDS: fentaNYL Drip 2500mCg/250mlNS 250 ML IV SCH ×2 (05:07→16:49)
[2020-08-01 05:12] LABS: BUN/Creatinine Ratio 23.7; Calcium 8.2 mg/dL (8.5-10.1); Potassium 3.6 mmol/L (3.5-5.1)
[2020-08-01] MEDS: METOCLOPRAMIDE HCL 5MG/ml INJ 2ml VIAL IV SCH ×3 (06:04→22:28)
[2020-08-01] MEDS: BUDESONIDE (INHALATION) 0.5 MG/2 ML NEB NEB SCH ×2 (07:06→22:42)
[2020-08-01] MEDS: POTASSIUM EFFERVESENT TAB 25 MEQ GT SCH (10:08)
[2020-08-01] MEDS: DexAMETHasone SOD PHOS 10MG/1ML VIAL INJ IV SCH (10:08)
[2020-08-01] MEDS: ZINC SULFATE 220mg CAP or TAB PO SCH (10:09)
[2020-08-01] MEDS: PANTOPRAZOLE 40 MG/10 ML VIAL INJ IV SCH (10:09)
[2020-08-01] MEDS: FUROSEMIDE 20 MG/2 ML VIAL IV SCH (10:09)
[2020-08-01] MEDS: FLORASTOR (S. BOULARDII) 250 MG CAP PO SCH (10:10)
[2020-08-01] MEDS: ENOXAPARIN SOD 40 MG/0.4 ML SYRINGE SC SCH ×2 (10:10→22:28)
[2020-08-01] MEDS: CHOLECALCIFEROL (VITD3) 2,000 UNIT CAP/TAB PO SCH (10:10)
[2020-08-01] MEDS: ASCORBIC ACID 1,000 MG TAB PO SCH (10:10)
[2020-08-01] MEDS: NOREPINEPHRINE 8 MG/250ML KIT 250 ML IV SCH (22:15)
[2020-08-01] MEDS: SENNA 8.6 MG TAB PO SCH (22:28)
[2020-08-01] MEDS: ALBUTEROL SULF 2.5 MG/0.5ML(0.5%) NEB SOLN NEB PRN (22:45)
[2020-08-02] VITALS (103 sets, daily range): BP systolic 82–150; BP diastolic 49–92
[2020-08-02] MEDS: fentaNYL Drip 2500mCg/250mlNS 250 ML IV SCH ×2 (01:30→15:08)
[2020-08-02] MEDS: PROPOFOL 100 ML IV SCH ×5 (01:30→15:07)
[2020-08-02] MEDS: MIDAZOLAM DRIP 50 mg/50mL 50 ML IV SCH ×3 (03:30→18:29)
[2020-08-02 04:37] LABS: Basophils # (auto) 0.1 10 ^3/uL (0-0.2); Basophils % (auto) 0.7 % (0.0-2.0); Eosinophils # (auto) 0.1 10 ^3/uL (0-0.8); Eosinophils % (auto) 0.6 % (0.0-7.0); Hematocrit 41.2 % (41.0-53.0); Hemoglobin 14.3 g/dL (13.5-17.5); Lymphocytes # (auto) 1.6 10 ^3/uL (0.4-5.4); Lymphocytes % (auto) 16.7 % (10.0-50.0); Mean Corpuscular Hemoglobin 31.8 pg (28.0-32.0); Mean Corpuscular Hgb Conc. 34.8 g/dL (32.0-36.0); Mean Corpuscular Volume 91.4 fL (80.0-100.0); Monocytes # (auto) 0.7 10 ^3/uL (0-1.3); Monocytes % (auto) 7.6 % (0.0-12.0); Neutrophils # (auto) 7.1 10 ^3/uL (1.6-8.6); Neutrophils % (auto) 74.4 % (37.0-80.0); Nucleated Red Blood Cells % 0.1 %; Red Cell Distribution Width 13.7 % (11.8-14.3); White Blood Cell 9.6 10^3/uL (4.4-10.8)
[2020-08-02 04:53] LABS: Calcium 8.7 mg/dL (8.5-10.1); Potassium 3.5 mmol/L (3.5-5.1)
[2020-08-02 04:56] LABS: BUN/Creatinine Ratio 28.8; CRP High Sensitivity 0.76 mg/dL (< 0.3)
[2020-08-02] MEDS: ACETAMINOPHEN 500 MG TAB PO PRN (05:37)
[2020-08-02] MEDS: PIPERACILLIN-TAZOB 3.375GM 100 ML IV SCH ×5 (05:38→23:57)
[2020-08-02] MEDS: METOCLOPRAMIDE HCL 5MG/ml INJ 2ml VIAL IV SCH ×3 (05:38→22:00)
[2020-08-02] MEDS: BUDESONIDE (INHALATION) 0.5 MG/2 ML NEB NEB SCH ×2 (08:03→22:38)
[2020-08-02] MEDS: ASCORBIC ACID 1,000 MG TAB PO SCH (10:00)
[2020-08-02] MEDS: DexAMETHasone SOD PHOS 10MG/1ML VIAL INJ IV SCH (10:00)
[2020-08-02] MEDS: POTASSIUM EFFERVESENT TAB 25 MEQ GT SCH (10:00)
[2020-08-02] MEDS: ZINC SULFATE 220mg CAP or TAB PO SCH (10:00)
[2020-08-02] MEDS: FUROSEMIDE 20 MG/2 ML VIAL IV SCH (10:00)
[2020-08-02] MEDS: PANTOPRAZOLE 40 MG/10 ML VIAL INJ IV SCH (10:00)
[2020-08-02] MEDS: FLORASTOR (S. BOULARDII) 250 MG CAP PO SCH (10:00)
[2020-08-02] MEDS: CHOLECALCIFEROL (VITD3) 2,000 UNIT CAP/TAB PO SCH (10:00)
[2020-08-02] MEDS: NOREPINEPHRINE 8 MG/250ML KIT 250 ML IV SCH (18:02)
[2020-08-02] MEDS ORDERED: ROCURONIUM 10MG/ML 10ML VIAL IV ONE ×2 (18:46→19:00)
[2020-08-02] MEDS: SENNA 8.6 MG TAB PO SCH (22:00)
[2020-08-02] MEDS: ALBUTEROL SULF 2.5 MG/0.5ML(0.5%) NEB SOLN NEB PRN (22:38)
[2020-08-03] VITALS (107 sets, daily range): BP systolic 91–147; BP diastolic 47–84
[2020-08-03] MEDS: MIDAZOLAM DRIP 50 mg/50mL 50 ML IV SCH ×5 (00:29→20:04)
[2020-08-03] MEDS: PROPOFOL 100 ML IV SCH ×7 (00:29→20:05)
[2020-08-03] MEDS: fentaNYL Drip 2500mCg/250mlNS 250 ML IV SCH ×2 (03:03→14:42)
[2020-08-03 04:56] LABS: Basophils # (auto) 0.1 10 ^3/uL (0-0.2); Basophils % (auto) 0.6 % (0.0-2.0); Eosinophils # (auto) 0.1 10 ^3/uL (0-0.8); Hemoglobin 13.9 g/dL (13.5-17.5); Lymphocytes # (auto) 1.5 10 ^3/uL (0.4-5.4); Lymphocytes % (auto) 14.6 % (10.0-50.0); Mean Corpuscular Hgb Conc. 34.8 g/dL (32.0-36.0); Mean Corpuscular Volume 91.9 fL (80.0-100.0); Monocytes # (auto) 0.6 10 ^3/uL (0-1.3); Monocytes % (auto) 5.7 % (0.0-12.0); Neutrophils # (auto) 8.3 10 ^3/uL (1.6-8.6); Neutrophils % (auto) 78.1 % (37.0-80.0); Red Blood Cells 4.35 10^6/uL (4.5-5.90); Red Cell Distribution Width 13.7 % (11.8-14.3); White Blood Cell 10.6 10^3/uL (4.4-10.8)
[2020-08-03 05:09] LABS: Albumin 2.8 g/dL (3.4-5.0); Calcium 8.6 mg/dL (8.5-10.1); Potassium 3.7 mmol/L (3.5-5.1)
[2020-08-03 05:13] LABS: BUN/Creatinine Ratio 28.8; Bilirubin, Total 0.7 mg/dL (0.2-1.0); Magnesium 2.2 mg/dL (1.6-2.6); Total Protein 6.5 g/dL (6.4-8.2)
[2020-08-03 05:14] LABS: INR 1.05 (0.9-1.15); Partial Thromboplastin Time 23.4 sec (23.0-31.2)
[2020-08-03] MEDS: PIPERACILLIN-TAZOB 3.375GM 100 ML IV SCH ×3 (06:00→18:18)
[2020-08-03] MEDS: METOCLOPRAMIDE HCL 5MG/ml INJ 2ml VIAL IV SCH ×3 (06:00→21:45)
[2020-08-03] MEDS: BUDESONIDE (INHALATION) 0.5 MG/2 ML NEB NEB SCH ×2 (07:34→22:57)
[2020-08-03] MEDS: FLORASTOR (S. BOULARDII) 250 MG CAP PO SCH (10:34)
[2020-08-03] MEDS: PANTOPRAZOLE 40 MG/10 ML VIAL INJ IV SCH (10:34)
[2020-08-03] MEDS: FUROSEMIDE 20 MG/2 ML VIAL IV SCH (10:34)
[2020-08-03] MEDS: DexAMETHasone SOD PHOS 10MG/1ML VIAL INJ IV SCH (10:34)
[2020-08-03] MEDS: ZINC SULFATE 220mg CAP or TAB PO SCH (10:34)
[2020-08-03] MEDS: ASCORBIC ACID 1,000 MG TAB PO SCH (10:35)
[2020-08-03] MEDS: CHOLECALCIFEROL (VITD3) 2,000 UNIT CAP/TAB PO SCH (10:35)
[2020-08-03] MEDS: POTASSIUM EFFERVESENT TAB 25 MEQ GT SCH (10:35)
[2020-08-03] MEDS: ACETAMINOPHEN 500 MG TAB PO PRN (11:05)
[2020-08-03] MEDS: NOREPINEPHRINE 8 MG/250ML KIT 250 ML IV SCH (16:16)
[2020-08-03] MEDS: SENNA 8.6 MG TAB PO SCH (21:46)
[2020-08-03] MEDS: ALBUTEROL SULF 2.5 MG/0.5ML(0.5%) NEB SOLN NEB PRN (22:57)
[2020-08-04] VITALS (106 sets, daily range): BP systolic 86–153; BP diastolic 45–91
[2020-08-04] MEDS: PROPOFOL 100 ML IV SCH ×7 (00:40→20:02)
[2020-08-04] MEDS: PIPERACILLIN-TAZOB 3.375GM 100 ML IV SCH ×4 (00:40→18:02)
[2020-08-04] MEDS: MIDAZOLAM DRIP 50 mg/50mL 50 ML IV SCH ×6 (00:41→20:03)
[2020-08-04] MEDS: ACETAMINOPHEN 500 MG TAB PO PRN (01:40)
[2020-08-04] MEDS: fentaNYL Drip 2500mCg/250mlNS 250 ML IV SCH ×3 (01:42→20:04)
[2020-08-04 04:26] LABS: Basophils # (auto) 0.1 10 ^3/uL (0-0.2); Basophils % (auto) 0.4 % (0.0-2.0); Eosinophils # (auto) 0.3 10 ^3/uL (0-0.8); Eosinophils % (auto) 1.7 % (0.0-7.0); Lymphocytes # (auto) 1.5 10 ^3/uL (0.4-5.4); Lymphocytes % (auto) 9.5 % (10.0-50.0); Mean Corpuscular Hemoglobin 32.2 pg (28.0-32.0); Mean Corpuscular Volume 92.1 fL (80.0-100.0); Monocytes # (auto) 0.9 10 ^3/uL (0-1.3); Monocytes % (auto) 5.7 % (0.0-12.0); Neutrophils % (auto) 82.7 % (37.0-80.0); Nucleated Red Blood Cells % 0.3 %; Red Blood Cells 4.35 10^6/uL (4.5-5.90); Red Cell Distribution Width 13.9 % (11.8-14.3); White Blood Cell 15.7 10^3/uL (4.4-10.8)
[2020-08-04 04:39] LABS: INR 1.05 (0.9-1.15); Partial Thromboplastin Time 23.1 sec (23.0-31.2)
[2020-08-04 04:45] LABS: Potassium 3.6 mmol/L (3.5-5.1)
[2020-08-04 04:55] LABS: Albumin 2.8 g/dL (3.4-5.0); Bilirubin, Total 0.8 mg/dL (0.2-1.0); Calcium 8.5 mg/dL (8.5-10.1); Magnesium 2.3 mg/dL (1.6-2.6); Phosphorus 3.2 mg/dL (2.5-4.90); Total Protein 6.5 g/dL (6.4-8.2)
[2020-08-04] MEDS: METOCLOPRAMIDE HCL 5MG/ml INJ 2ml VIAL IV SCH ×3 (05:53→20:31)
[2020-08-04] MEDS: BUDESONIDE (INHALATION) 0.5 MG/2 ML NEB NEB SCH ×2 (07:18→22:42)
[2020-08-04] MEDS: POTASSIUM EFFERVESENT TAB 25 MEQ GT SCH (09:53)
[2020-08-04] MEDS: FUROSEMIDE 20 MG/2 ML VIAL IV SCH (09:53)
[2020-08-04] MEDS: ZINC SULFATE 220mg CAP or TAB PO SCH (09:53)
[2020-08-04] MEDS: DexAMETHasone SOD PHOS 10MG/1ML VIAL INJ IV SCH (09:53)
[2020-08-04] MEDS: PANTOPRAZOLE 40 MG/10 ML VIAL INJ IV SCH (09:53)
[2020-08-04] MEDS: ASCORBIC ACID 1,000 MG TAB PO SCH (09:54)
[2020-08-04] MEDS: FLORASTOR (S. BOULARDII) 250 MG CAP PO SCH (09:54)
[2020-08-04] MEDS: CHOLECALCIFEROL (VITD3) 2,000 UNIT CAP/TAB PO SCH (09:54)
[2020-08-04] MEDS ORDERED: ACETAMINOPHEN 650 mg PER 20.3 mL UD PO ONE (14:30)
[2020-08-04] MEDS ORDERED: methylPREDNISolone SOD SUCC 40 MG/ML VL IV ONE (14:30)
[2020-08-04] MEDS ORDERED: diphenhdrAMINE HCL 50 MG/1 ML VL IV ONE (14:30)
[2020-08-04] MEDS: NOREPINEPHRINE 8 MG/250ML KIT 250 ML IV SCH (14:30)
[2020-08-04] MEDS ORDERED: TOCILIZUMAB 400 MG in SODIUM CHL 0.9% 80 ML IV ONE (15:00)
[2020-08-04] MEDS: SENNA 8.6 MG TAB PO SCH (20:31)
[2020-08-04] MEDS: ALBUTEROL SULF 2.5 MG/0.5ML(0.5%) NEB SOLN NEB PRN (22:42)
[2020-08-05] VITALS (106 sets, daily range): BP systolic 92–134; BP diastolic 49–80
[2020-08-05] MEDS: PIPERACILLIN-TAZOB 3.375GM 100 ML IV SCH ×5 (00:44→23:44)
[2020-08-05] MEDS: MIDAZOLAM DRIP 50 mg/50mL 50 ML IV SCH ×5 (01:58→22:18)
[2020-08-05 04:23] LABS: Basophils # (auto) 0 10 ^3/uL (0-0.2); Basophils % (auto) 0.1 % (0.0-2.0); Eosinophils # (auto) 0.1 10 ^3/uL (0-0.8); Eosinophils % (auto) 1.1 % (0.0-7.0); Hematocrit 39.5 % (41.0-53.0); Hemoglobin 13.6 g/dL (13.5-17.5); Lymphocytes # (auto) 1.1 10 ^3/uL (0.4-5.4); Lymphocytes % (auto) 10.7 % (10.0-50.0); Mean Corpuscular Hemoglobin 31.7 pg (28.0-32.0); Mean Corpuscular Hgb Conc. 34.4 g/dL (32.0-36.0); Mean Corpuscular Volume 91.9 fL (80.0-100.0); Monocytes # (auto) 0.6 10 ^3/uL (0-1.3); Monocytes % (auto) 5.6 % (0.0-12.0); Neutrophils # (auto) 8.2 10 ^3/uL (1.6-8.6); Neutrophils % (auto) 82.5 % (37.0-80.0); Nucleated Red Blood Cells % 0.1 %
[2020-08-05 04:34] LABS: Calcium 8.6 mg/dL (8.5-10.1); Potassium 3.7 mmol/L (3.5-5.1)
[2020-08-05 04:46] LABS: CRP High Sensitivity 6.62 mg/dL (< 0.3)
[2020-08-05] MEDS: METOCLOPRAMIDE HCL 5MG/ml INJ 2ml VIAL IV SCH ×3 (05:13→21:49)
[2020-08-05] MEDS: PROPOFOL 100 ML IV SCH ×5 (05:14→19:47)
[2020-08-05] MEDS: ALBUTEROL SULF 2.5 MG/0.5ML(0.5%) NEB SOLN NEB PRN ×2 (06:31→21:55)
[2020-08-05] MEDS: BUDESONIDE (INHALATION) 0.5 MG/2 ML NEB NEB SCH ×2 (06:32→21:55)
[2020-08-05] MEDS: DexAMETHasone SOD PHOS 10MG/1ML VIAL INJ IV SCH (10:33)
[2020-08-05] MEDS: POTASSIUM EFFERVESENT TAB 25 MEQ GT SCH (10:33)
[2020-08-05] MEDS: FLORASTOR (S. BOULARDII) 250 MG CAP PO SCH (10:34)
[2020-08-05] MEDS: ASCORBIC ACID 1,000 MG TAB PO SCH (10:34)
[2020-08-05] MEDS: PANTOPRAZOLE 40 MG/10 ML VIAL INJ IV SCH (10:34)
[2020-08-05] MEDS: FUROSEMIDE 20 MG/2 ML VIAL IV SCH (10:34)
[2020-08-05] MEDS: ZINC SULFATE 220mg CAP or TAB PO SCH (10:34)
[2020-08-05] MEDS: CHOLECALCIFEROL (VITD3) 2,000 UNIT CAP/TAB PO SCH (10:35)
[2020-08-05] MEDS: fentaNYL Drip 2500mCg/250mlNS 250 ML IV SCH ×2 (12:31→22:19)
[2020-08-05] MEDS: NOREPINEPHRINE 8 MG/250ML KIT 250 ML IV SCH (12:44)
[2020-08-05] MEDS: ACETAMINOPHEN 500 MG TAB PO PRN (12:52)
[2020-08-05] MEDS: SENNA 8.6 MG TAB PO SCH (21:50)
[2020-08-06] VITALS (103 sets, daily range): BP systolic 91–123; BP diastolic 50–84
[2020-08-06] MEDS: PROPOFOL 100 ML IV SCH ×5 (02:14→20:46)
[2020-08-06] MEDS: MIDAZOLAM DRIP 50 mg/50mL 50 ML IV SCH ×4 (02:14→20:47)
[2020-08-06 04:45] LABS: Basophils # (auto) 0.1 10 ^3/uL (0-0.2); Basophils % (auto) 0.8 % (0.0-2.0); Eosinophils # (auto) 0.3 10 ^3/uL (0-0.8); Eosinophils % (auto) 3.8 % (0.0-7.0); Lymphocytes # (auto) 1.5 10 ^3/uL (0.4-5.4); Lymphocytes % (auto) 16.5 % (10.0-50.0); Mean Corpuscular Hemoglobin 31.9 pg (28.0-32.0); Mean Corpuscular Hgb Conc. 34.2 g/dL (32.0-36.0); Mean Corpuscular Volume 93.3 fL (80.0-100.0); Monocytes # (auto) 0.5 10 ^3/uL (0-1.3); Monocytes % (auto) 5.1 % (0.0-12.0); Neutrophils # (auto) 6.6 10 ^3/uL (1.6-8.6); Neutrophils % (auto) 73.8 % (37.0-80.0); Nucleated Red Blood Cells % 0.1 %; Red Blood Cells 4.71 10^6/uL (4.5-5.90); Red Cell Distribution Width 13.8 % (11.8-14.3)
[2020-08-06 05:08] LABS: Calcium 9.1 mg/dL (8.5-10.1); Potassium 3.6 mmol/L (3.5-5.1)
[2020-08-06 05:11] LABS: BUN/Creatinine Ratio 20.6
[2020-08-06] MEDS: PIPERACILLIN-TAZOB 3.375GM 100 ML IV SCH ×4 (05:31→23:33)
[2020-08-06] MEDS: METOCLOPRAMIDE HCL 5MG/ml INJ 2ml VIAL IV SCH ×3 (05:31→21:22)
[2020-08-06] MEDS: BUDESONIDE (INHALATION) 0.5 MG/2 ML NEB NEB SCH ×2 (05:57→18:24)
[2020-08-06] MEDS: ALBUTEROL SULF 2.5 MG/0.5ML(0.5%) NEB SOLN NEB PRN ×2 (05:57→18:24)
[2020-08-06] MEDS: ASCORBIC ACID 1,000 MG TAB PO SCH (09:12)
[2020-08-06] MEDS: ZINC SULFATE 220mg CAP or TAB PO SCH (09:12)
[2020-08-06] MEDS: CHOLECALCIFEROL (VITD3) 2,000 UNIT CAP/TAB PO SCH (09:12)
[2020-08-06] MEDS: FLORASTOR (S. BOULARDII) 250 MG CAP PO SCH (09:12)
[2020-08-06] MEDS: FUROSEMIDE 20 MG/2 ML VIAL IV SCH (09:13)
[2020-08-06] MEDS: PANTOPRAZOLE 40 MG/10 ML VIAL INJ IV SCH (09:13)
[2020-08-06] MEDS: POTASSIUM EFFERVESENT TAB 25 MEQ GT SCH (09:14)
[2020-08-06] MEDS: DexAMETHasone SOD PHOS 10MG/1ML VIAL INJ IV SCH (09:14)
[2020-08-06] MEDS: NOREPINEPHRINE 8 MG/250ML KIT 250 ML IV SCH (10:58)
[2020-08-06] MEDS: fentaNYL Drip 2500mCg/250mlNS 250 ML IV SCH ×2 (17:51→19:35)
[2020-08-06] MEDS: SENNA 8.6 MG TAB PO SCH (21:22)
[2020-08-07] VITALS (103 sets, daily range): BP systolic 88–136; BP diastolic 52–85
[2020-08-07] MEDS: MIDAZOLAM DRIP 50 mg/50mL 50 ML IV SCH ×5 (00:17→19:58)
[2020-08-07] MEDS: PROPOFOL 100 ML IV SCH ×6 (00:35→22:48)
[2020-08-07 04:32] LABS: Basophils # (auto) 0.1 10 ^3/uL (0-0.2); Basophils % (auto) 0.5 % (0.0-2.0); Eosinophils # (auto) 0.5 10 ^3/uL (0-0.8); Eosinophils % (auto) 4.7 % (0.0-7.0); Hematocrit 40.7 % (41.0-53.0); Hemoglobin 14.3 g/dL (13.5-17.5); Lymphocytes # (auto) 1.5 10 ^3/uL (0.4-5.4); Lymphocytes % (auto) 14.3 % (10.0-50.0); Mean Corpuscular Hemoglobin 32.6 pg (28.0-32.0); Monocytes # (auto) 0.5 10 ^3/uL (0-1.3); Monocytes % (auto) 4.9 % (0.0-12.0); Neutrophils % (auto) 75.6 % (37.0-80.0); Nucleated Red Blood Cells % 0.1 %; Red Blood Cells 4.38 10^6/uL (4.5-5.90); Red Cell Distribution Width 14.1 % (11.8-14.3); White Blood Cell 10.6 10^3/uL (4.4-10.8)
[2020-08-07 04:41] LABS: BUN/Creatinine Ratio 24.6; Calcium 8.5 mg/dL (8.5-10.1); Potassium 3.9 mmol/L (3.5-5.1)
[2020-08-07] MEDS: PIPERACILLIN-TAZOB 3.375GM 100 ML IV SCH ×3 (05:29→17:28)
[2020-08-07] MEDS: METOCLOPRAMIDE HCL 5MG/ml INJ 2ml VIAL IV SCH ×3 (05:30→22:33)
[2020-08-07] MEDS: fentaNYL Drip 2500mCg/250mlNS 250 ML IV SCH (05:56)
[2020-08-07] MEDS: ALBUTEROL SULF 2.5 MG/0.5ML(0.5%) NEB SOLN NEB PRN ×2 (06:54→22:51)
[2020-08-07] MEDS: BUDESONIDE (INHALATION) 0.5 MG/2 ML NEB NEB SCH ×2 (06:55→22:51)
[2020-08-07] MEDS: NOREPINEPHRINE 8 MG/250ML KIT 250 ML IV SCH (09:12)
[2020-08-07] MEDS: FLORASTOR (S. BOULARDII) 250 MG CAP PO SCH (09:28)
[2020-08-07] MEDS: DexAMETHasone SOD PHOS 10MG/1ML VIAL INJ IV SCH (09:29)
[2020-08-07] MEDS: ZINC SULFATE 220mg CAP or TAB PO SCH (09:29)
[2020-08-07] MEDS: CHOLECALCIFEROL (VITD3) 2,000 UNIT CAP/TAB PO SCH (09:29)
[2020-08-07] MEDS: ASCORBIC ACID 1,000 MG TAB PO SCH (09:29)
[2020-08-07] MEDS: FUROSEMIDE 20 MG/2 ML VIAL IV SCH (09:30)
[2020-08-07] MEDS: PANTOPRAZOLE 40 MG/10 ML VIAL INJ IV SCH (09:30)
[2020-08-07] MEDS: POTASSIUM EFFERVESENT TAB 25 MEQ GT SCH (09:31)
[2020-08-07] MEDS: LACTULOSE 20Gm/30ML SOLN PO SCH (11:27)
[2020-08-07] MEDS: DOCUSATE ORAL LIQUID 100 MG/10 ML UD GT SCH (22:32)
[2020-08-07] MEDS: SENNA 8.6 MG TAB PO SCH (22:34)
[2020-08-08] VITALS (101 sets, daily range): BP systolic 64–118; BP diastolic 47–75
[2020-08-08] MEDS: PIPERACILLIN-TAZOB 3.375GM 100 ML IV SCH ×5 (00:07→23:59)
[2020-08-08] MEDS: fentaNYL Drip 2500mCg/250mlNS 250 ML IV SCH ×2 (02:50→11:37)
[2020-08-08] MEDS: METOCLOPRAMIDE HCL 5MG/ml INJ 2ml VIAL IV SCH ×3 (05:44→22:37)
[2020-08-08 06:59] LABS: Basophils # (auto) 0.1 10 ^3/uL (0-0.2); Basophils % (auto) 0.5 % (0.0-2.0); Eosinophils # (auto) 0.9 10 ^3/uL (0-0.8); Eosinophils % (auto) 6.8 % (0.0-7.0); Hematocrit 40.4 % (41.0-53.0); Hemoglobin 13.7 g/dL (13.5-17.5); Lymphocytes # (auto) 1.7 10 ^3/uL (0.4-5.4); Lymphocytes % (auto) 13.4 % (10.0-50.0); Mean Corpuscular Hemoglobin 31.5 pg (28.0-32.0); Mean Corpuscular Hgb Conc. 33.8 g/dL (32.0-36.0); Mean Corpuscular Volume 93.1 fL (80.0-100.0); Monocytes # (auto) 0.5 10 ^3/uL (0-1.3); Monocytes % (auto) 4.1 % (0.0-12.0); Neutrophils # (auto) 9.5 10 ^3/uL (1.6-8.6); Neutrophils % (auto) 75.2 % (37.0-80.0); Red Blood Cells 4.34 10^6/uL (4.5-5.90); Red Cell Distribution Width 13.9 % (11.8-14.3); White Blood Cell 12.6 10^3/uL (4.4-10.8)
[2020-08-08] MEDS: BUDESONIDE (INHALATION) 0.5 MG/2 ML NEB NEB SCH ×2 (07:13→22:17)
[2020-08-08 07:16] LABS: BUN/Creatinine Ratio 24.6; Calcium 9.1 mg/dL (8.5-10.1); Potassium 3.5 mmol/L (3.5-5.1)
[2020-08-08] MEDS: NOREPINEPHRINE 8 MG/250ML KIT 250 ML IV SCH (07:26)
[2020-08-08] MEDS: MIDAZOLAM DRIP 50 mg/50mL 50 ML IV SCH ×3 (07:34→22:38)
[2020-08-08] MEDS: FUROSEMIDE 20 MG/2 ML VIAL IV SCH (09:58)
[2020-08-08] MEDS: PANTOPRAZOLE 40 MG/10 ML VIAL INJ IV SCH (09:58)
[2020-08-08] MEDS: DexAMETHasone SOD PHOS 10MG/1ML VIAL INJ IV SCH (09:58)
[2020-08-08] MEDS: ZINC SULFATE 220mg CAP or TAB PO SCH (09:59)
[2020-08-08] MEDS: FLORASTOR (S. BOULARDII) 250 MG CAP PO SCH (09:59)
[2020-08-08] MEDS: LACTULOSE 20Gm/30ML SOLN PO SCH (09:59)
[2020-08-08] MEDS: POTASSIUM EFFERVESENT TAB 25 MEQ GT SCH (09:59)
[2020-08-08] MEDS: ASCORBIC ACID 1,000 MG TAB PO SCH (09:59)
[2020-08-08] MEDS: CHOLECALCIFEROL (VITD3) 2,000 UNIT CAP/TAB PO SCH (10:00)
[2020-08-08] MEDS ORDERED: ENOXAPARIN SOD 80 MG/0.8ML SYRINGE SC ONE (13:45)
[2020-08-08] MEDS: PROPOFOL 100 ML IV SCH (18:14)
[2020-08-08] MEDS: ALBUTEROL SULF 2.5 MG/0.5ML(0.5%) NEB SOLN NEB PRN (22:17)
[2020-08-08] MEDS: DOCUSATE ORAL LIQUID 100 MG/10 ML UD GT SCH (22:37)
[2020-08-08] MEDS: ENOXAPARIN SOD 80 MG/0.8ML SYRINGE SC SCH (22:37)
[2020-08-08] MEDS: SENNA 8.6 MG TAB PO SCH (22:37)
[2020-08-09] VITALS (97 sets, daily range): BP systolic 82–127; BP diastolic 49–80
[2020-08-09] MEDS: PROPOFOL 100 ML IV SCH ×6 (00:27→18:22)
[2020-08-09] MEDS: MIDAZOLAM DRIP 50 mg/50mL 50 ML IV SCH ×6 (00:27→18:48)
[2020-08-09 04:16] LABS: Basophils # (auto) 0.1 10 ^3/uL (0-0.2); Basophils % (auto) 0.5 % (0.0-2.0); Eosinophils % (auto) 7.8 % (0.0-7.0); Hematocrit 38.5 % (41.0-53.0); Hemoglobin 13.1 g/dL (13.5-17.5); Lymphocytes # (auto) 1.7 10 ^3/uL (0.4-5.4); Lymphocytes % (auto) 13.9 % (10.0-50.0); Mean Corpuscular Hemoglobin 31.8 pg (28.0-32.0); Mean Corpuscular Hgb Conc. 34.1 g/dL (32.0-36.0); Mean Corpuscular Volume 93.2 fL (80.0-100.0); Monocytes # (auto) 0.4 10 ^3/uL (0-1.3); Monocytes % (auto) 3.5 % (0.0-12.0); Neutrophils % (auto) 74.3 % (37.0-80.0); Red Blood Cells 4.13 10^6/uL (4.5-5.90); Red Cell Distribution Width 13.8 % (11.8-14.3); White Blood Cell 12.2 10^3/uL (4.4-10.8)
[2020-08-09 04:34] LABS: Calcium 8.8 mg/dL (8.5-10.1); Potassium 3.5 mmol/L (3.5-5.1)
[2020-08-09 04:36] LABS: BUN/Creatinine Ratio 27.3
[2020-08-09] MEDS: NOREPINEPHRINE 8 MG/250ML KIT 250 ML IV SCH (05:40)
[2020-08-09] MEDS: PIPERACILLIN-TAZOB 3.375GM 100 ML IV SCH ×3 (05:55→17:24)
[2020-08-09] MEDS: METOCLOPRAMIDE HCL 5MG/ml INJ 2ml VIAL IV SCH ×3 (05:55→20:13)
[2020-08-09] MEDS: fentaNYL Drip 2500mCg/250mlNS 250 ML IV SCH ×2 (07:01→17:25)
[2020-08-09] MEDS: ALBUTEROL SULF 2.5 MG/0.5ML(0.5%) NEB SOLN NEB PRN ×2 (07:52→22:07)
[2020-08-09] MEDS: BUDESONIDE (INHALATION) 0.5 MG/2 ML NEB NEB SCH ×2 (07:53→22:07)
[2020-08-09] MEDS: DexAMETHasone SOD PHOS 10MG/1ML VIAL INJ IV SCH (09:59)
[2020-08-09] MEDS: ENOXAPARIN SOD 80 MG/0.8ML SYRINGE SC SCH ×2 (10:00→20:14)
[2020-08-09] MEDS: FUROSEMIDE 20 MG/2 ML VIAL IV SCH (10:00)
[2020-08-09] MEDS: LACTULOSE 20Gm/30ML SOLN PO SCH (10:00)
[2020-08-09] MEDS: PANTOPRAZOLE 40 MG/10 ML VIAL INJ IV SCH (10:00)
[2020-08-09] MEDS: POTASSIUM EFFERVESENT TAB 25 MEQ GT SCH (10:01)
[2020-08-09] MEDS: ASCORBIC ACID 1,000 MG TAB PO SCH (10:02)
[2020-08-09] MEDS: ZINC SULFATE 220mg CAP or TAB PO SCH (10:02)
[2020-08-09] MEDS: FLORASTOR (S. BOULARDII) 250 MG CAP PO SCH (10:02)
[2020-08-09] MEDS: CHOLECALCIFEROL (VITD3) 2,000 UNIT CAP/TAB PO SCH (10:02)
[2020-08-09] MEDS: SENNA 8.6 MG TAB PO SCH (20:13)
[2020-08-09] MEDS: DOCUSATE ORAL LIQUID 100 MG/10 ML UD GT SCH (20:13)
[2020-08-10] VITALS (105 sets, daily range): BP systolic 78–123; BP diastolic 51–80
[2020-08-10] MEDS: PIPERACILLIN-TAZOB 3.375GM 100 ML IV SCH ×5 (00:50→23:55)
[2020-08-10 04:09] LABS: Basophils # (auto) 0 10 ^3/uL (0-0.2); Basophils % (auto) 0.4 % (0.0-2.0); Eosinophils # (auto) 0.5 10 ^3/uL (0-0.8); Eosinophils % (auto) 4.6 % (0.0-7.0); Hematocrit 37.9 % (41.0-53.0); Hemoglobin 13.1 g/dL (13.5-17.5); Lymphocytes # (auto) 1.3 10 ^3/uL (0.4-5.4); Lymphocytes % (auto) 12.6 % (10.0-50.0); Mean Corpuscular Hgb Conc. 34.6 g/dL (32.0-36.0); Mean Corpuscular Volume 92.5 fL (80.0-100.0); Monocytes # (auto) 0.4 10 ^3/uL (0-1.3); Monocytes % (auto) 4.1 % (0.0-12.0); Neutrophils # (auto) 8.4 10 ^3/uL (1.6-8.6); Neutrophils % (auto) 78.3 % (37.0-80.0); Nucleated Red Blood Cells % 0.1 %; Red Blood Cells 4.09 10^6/uL (4.5-5.90); Red Cell Distribution Width 14.2 % (11.8-14.3); White Blood Cell 10.8 10^3/uL (4.4-10.8)
[2020-08-10] MEDS: fentaNYL Drip 2500mCg/250mlNS 250 ML IV SCH ×3 (04:18→23:57)
[2020-08-10 04:25] LABS: BUN/Creatinine Ratio 25.9; Calcium 8.7 mg/dL (8.5-10.1); Potassium 3.6 mmol/L (3.5-5.1)
[2020-08-10] MEDS: METOCLOPRAMIDE HCL 5MG/ml INJ 2ml VIAL IV SCH ×3 (05:51→22:34)
[2020-08-10] MEDS: ALBUTEROL SULF 2.5 MG/0.5ML(0.5%) NEB SOLN NEB PRN ×2 (07:00→19:05)
[2020-08-10] MEDS: BUDESONIDE (INHALATION) 0.5 MG/2 ML NEB NEB SCH ×2 (07:00→19:05)
[2020-08-10] MEDS: PROPOFOL 100 ML IV SCH ×3 (08:38→18:36)
[2020-08-10] MEDS: ENOXAPARIN SOD 80 MG/0.8ML SYRINGE SC SCH ×2 (10:00→22:00)
[2020-08-10] MEDS: MIDAZOLAM DRIP 50 mg/50mL 50 ML IV SCH ×3 (10:15→18:38)
[2020-08-10] MEDS: LACTULOSE 20Gm/30ML SOLN PO SCH (10:51)
[2020-08-10] MEDS: ZINC SULFATE 220mg CAP or TAB PO SCH (10:52)
[2020-08-10] MEDS: ASCORBIC ACID 1,000 MG TAB PO SCH (10:52)
[2020-08-10] MEDS: CHOLECALCIFEROL (VITD3) 2,000 UNIT CAP/TAB PO SCH (10:52)
[2020-08-10] MEDS: PANTOPRAZOLE 40 MG/10 ML VIAL INJ IV SCH (10:52)
[2020-08-10] MEDS: FUROSEMIDE 20 MG/2 ML VIAL IV SCH (10:53)
[2020-08-10] MEDS: FLORASTOR (S. BOULARDII) 250 MG CAP PO SCH (10:53)
[2020-08-10] MEDS: DexAMETHasone SOD PHOS 10MG/1ML VIAL INJ IV SCH (10:54)
[2020-08-10] MEDS: POTASSIUM EFFERVESENT TAB 25 MEQ GT SCH (10:54)
[2020-08-10] MEDS: DOCUSATE ORAL LIQUID 100 MG/10 ML UD GT SCH (22:33)
[2020-08-10] MEDS: SENNA 8.6 MG TAB PO SCH (22:34)
[2020-08-11] VITALS (104 sets, daily range): BP systolic 71–156; BP diastolic 42–88
[2020-08-11] MEDS: MIDAZOLAM DRIP 50 mg/50mL 50 ML IV SCH ×6 (02:06→21:24)
[2020-08-11] MEDS: PROPOFOL 100 ML IV SCH ×5 (02:06→17:46)
[2020-08-11] MEDS: PIPERACILLIN-TAZOB 3.375GM 100 ML IV SCH ×4 (05:52→23:59)
[2020-08-11] MEDS: METOCLOPRAMIDE HCL 5MG/ml INJ 2ml VIAL IV SCH ×3 (05:53→21:24)
[2020-08-11 06:15] LABS: Basophils # (auto) 0.1 10 ^3/uL (0-0.2); Basophils % (auto) 0.7 % (0.0-2.0); Eosinophils # (auto) 1.2 10 ^3/uL (0-0.8); Eosinophils % (auto) 9.6 % (0.0-7.0); Hematocrit 41.2 % (41.0-53.0); Hemoglobin 14.2 g/dL (13.5-17.5); Lymphocytes # (auto) 1.9 10 ^3/uL (0.4-5.4); Lymphocytes % (auto) 15.7 % (10.0-50.0); Mean Corpuscular Hemoglobin 32.1 pg (28.0-32.0); Mean Corpuscular Hgb Conc. 34.4 g/dL (32.0-36.0); Mean Corpuscular Volume 93.2 fL (80.0-100.0); Monocytes # (auto) 0.5 10 ^3/uL (0-1.3); Neutrophils # (auto) 8.4 10 ^3/uL (1.6-8.6); Nucleated Red Blood Cells % 0.1 %; Red Blood Cells 4.42 10^6/uL (4.5-5.90); Red Cell Distribution Width 14.5 % (11.8-14.3)
[2020-08-11 06:45] LABS: Potassium 3.5 mmol/L (3.5-5.1)
[2020-08-11 06:51] LABS: BUN/Creatinine Ratio 24.6; Calcium 8.9 mg/dL (8.5-10.1)
[2020-08-11] MEDS: NOREPINEPHRINE 8 MG/250ML KIT 250 ML IV SCH ×2 (08:00→22:44)
[2020-08-11] MEDS: fentaNYL Drip 2500mCg/250mlNS 250 ML IV SCH ×2 (08:55→16:19)
[2020-08-11] MEDS: DexAMETHasone SOD PHOS 10MG/1ML VIAL INJ IV SCH (09:47)
[2020-08-11] MEDS: LACTULOSE 20Gm/30ML SOLN PO SCH (09:47)
[2020-08-11] MEDS: PANTOPRAZOLE 40 MG/10 ML VIAL INJ IV SCH (09:47)
[2020-08-11] MEDS: POTASSIUM EFFERVESENT TAB 25 MEQ GT SCH (09:47)
[2020-08-11] MEDS: FUROSEMIDE 20 MG/2 ML VIAL IV SCH (09:47)
[2020-08-11] MEDS: ASCORBIC ACID 1,000 MG TAB PO SCH (09:48)
[2020-08-11] MEDS: FLORASTOR (S. BOULARDII) 250 MG CAP PO SCH (09:48)
[2020-08-11] MEDS: ZINC SULFATE 220mg CAP or TAB PO SCH (09:48)
[2020-08-11] MEDS: CHOLECALCIFEROL (VITD3) 2,000 UNIT CAP/TAB PO SCH (09:48)
[2020-08-11] MEDS: ENOXAPARIN SOD 80 MG/0.8ML SYRINGE SC SCH ×2 (09:48→21:24)
[2020-08-11] MEDS: BUDESONIDE (INHALATION) 0.5 MG/2 ML NEB NEB SCH ×2 (12:57→22:17)
[2020-08-11] MEDS: ACETAMINOPHEN 500 MG TAB PO PRN (17:47)
[2020-08-11] MEDS: DOCUSATE ORAL LIQUID 100 MG/10 ML UD GT SCH (21:23)
[2020-08-11] MEDS: SENNA 8.6 MG TAB PO SCH (21:24)
[2020-08-11] MEDS: ALBUTEROL SULF 2.5 MG/0.5ML(0.5%) NEB SOLN NEB PRN (22:17)
[2020-08-12] VITALS (103 sets, daily range): BP systolic 88–148; BP diastolic 45–100
[2020-08-12] MEDS ORDERED: LORazepam 2MG/ML-1ML VIAL IV ONE (01:00)
[2020-08-12] MEDS: PROMETHAZINE W/CODEINE 5 ML ORAL SYRUP PO PRN ×2 (01:15→14:53)
[2020-08-12] MEDS: MIDAZOLAM DRIP 50 mg/50mL 50 ML IV SCH ×4 (02:27→18:11)
[2020-08-12] MEDS: ACETAMINOPHEN 500 MG TAB PO PRN ×2 (02:31→15:38)
[2020-08-12] MEDS: fentaNYL Drip 2500mCg/250mlNS 250 ML IV SCH ×3 (02:34→17:39)
[2020-08-12] MEDS: PROPOFOL 100 ML IV SCH ×7 (02:35→22:46)
[2020-08-12 04:42] LABS: Basophils # (auto) 0.1 10 ^3/uL (0-0.2); Basophils % (auto) 0.6 % (0.0-2.0); Eosinophils % (auto) 10.3 % (0.0-7.0); Hematocrit 40.7 % (41.0-53.0); Hemoglobin 13.9 g/dL (13.5-17.5); Lymphocytes # (auto) 1.8 10 ^3/uL (0.4-5.4); Lymphocytes % (auto) 9.2 % (10.0-50.0); Mean Corpuscular Hemoglobin 31.7 pg (28.0-32.0); Mean Corpuscular Hgb Conc. 34.3 g/dL (32.0-36.0); Mean Corpuscular Volume 92.4 fL (80.0-100.0); Monocytes # (auto) 0.7 10 ^3/uL (0-1.3); Monocytes % (auto) 3.3 % (0.0-12.0); Neutrophils # (auto) 15.3 10 ^3/uL (1.6-8.6); Neutrophils % (auto) 76.6 % (37.0-80.0); Nucleated Red Blood Cells % 0.1 %; Red Cell Distribution Width 14.4 % (11.8-14.3)
[2020-08-12 05:05] LABS: Potassium 3.2 mmol/L (3.5-5.1)
[2020-08-12 05:10] LABS: BUN/Creatinine Ratio 24.1; CRP High Sensitivity 0.57 mg/dL (< 0.3); Calcium 8.4 mg/dL (8.5-10.1)
[2020-08-12] MEDS: METOCLOPRAMIDE HCL 5MG/ml INJ 2ml VIAL IV SCH ×3 (05:42→21:33)
[2020-08-12] MEDS: PIPERACILLIN-TAZOB 3.375GM 100 ML IV SCH (05:42)
[2020-08-12] MEDS: BUDESONIDE (INHALATION) 0.5 MG/2 ML NEB NEB SCH ×2 (06:35→22:05)
[2020-08-12] MEDS: ALBUTEROL SULF 2.5 MG/0.5ML(0.5%) NEB SOLN NEB PRN ×2 (06:35→22:05)
[2020-08-12] MEDS: FUROSEMIDE 20 MG/2 ML VIAL IV SCH (09:57)
[2020-08-12] MEDS: DexAMETHasone SOD PHOS 10MG/1ML VIAL INJ IV SCH (09:57)
[2020-08-12] MEDS: POTASSIUM EFFERVESENT TAB 25 MEQ GT SCH (09:57)
[2020-08-12] MEDS: PANTOPRAZOLE 40 MG/10 ML VIAL INJ IV SCH (09:57)
[2020-08-12] MEDS: LACTULOSE 20Gm/30ML SOLN PO SCH (09:58)
[2020-08-12] MEDS: ZINC SULFATE 220mg CAP or TAB PO SCH (09:58)
[2020-08-12] MEDS: CHOLECALCIFEROL (VITD3) 2,000 UNIT CAP/TAB PO SCH (09:58)
[2020-08-12] MEDS: ASCORBIC ACID 1,000 MG TAB PO SCH (09:58)
[2020-08-12] MEDS: FLORASTOR (S. BOULARDII) 250 MG CAP PO SCH (09:58)
[2020-08-12] MEDS: ENOXAPARIN SOD 80 MG/0.8ML SYRINGE SC SCH ×2 (09:58→21:34)
[2020-08-12] MEDS: MEROPENEM 1GM IVPB 100 ML IV SCH ×2 (12:14→19:39)
[2020-08-12] MEDS: POTASSIUM CHL 20MEQ/100ML 100 ML IV SCH ×2 (12:14→14:22)
[2020-08-12] MEDS: LINEZOLID 600MG/300ML 300 ML IV SCH (15:09)
[2020-08-12] MEDS: SENNA 8.6 MG TAB PO SCH (21:33)
[2020-08-12] MEDS: DOCUSATE ORAL LIQUID 100 MG/10 ML UD GT SCH (21:33)
[2020-08-12] MEDS ORDERED: NOREPINEPHRINE 8 MG/250ML KIT 250 ML IV ONE (21:49)
[2020-08-12] MEDS: NOREPINEPHRINE 8 MG/250ML KIT 250 ML IV SCH (22:36)
[2020-08-13] VITALS (97 sets, daily range): BP systolic 81–142; BP diastolic 30–92
[2020-08-13] MEDS: MIDAZOLAM DRIP 50 mg/50mL 50 ML IV SCH ×6 (01:19→20:30)
[2020-08-13] MEDS: LINEZOLID 600MG/300ML 300 ML IV SCH ×2 (03:00→15:34)
[2020-08-13] MEDS: MEROPENEM 1GM IVPB 100 ML IV SCH ×3 (04:05→19:38)
[2020-08-13 04:43] LABS: Potassium 3.2 mmol/L (3.5-5.1)
[2020-08-13 04:47] LABS: BUN/Creatinine Ratio 15.2; Calcium 7.9 mg/dL (8.5-10.1)
[2020-08-13 04:50] LABS: Basophils # (auto) 0.1 10 ^3/uL (0-0.2); Basophils % (auto) 0.9 % (0.0-2.0); Eosinophils # (auto) 1.9 10 ^3/uL (0-0.8); Eosinophils % (auto) 13.2 % (0.0-7.0); Hematocrit 37.5 % (41.0-53.0); Hemoglobin 13.3 g/dL (13.5-17.5); Lymphocytes # (auto) 1.5 10 ^3/uL (0.4-5.4); Lymphocytes % (auto) 10.6 % (10.0-50.0); Mean Corpuscular Hemoglobin 32.9 pg (28.0-32.0); Mean Corpuscular Hgb Conc. 35.4 g/dL (32.0-36.0); Mean Corpuscular Volume 92.8 fL (80.0-100.0); Monocytes # (auto) 0.4 10 ^3/uL (0-1.3); Neutrophils # (auto) 10.3 10 ^3/uL (1.6-8.6); Neutrophils % (auto) 72.3 % (37.0-80.0); Nucleated Red Blood Cells % 0.1 %; Red Blood Cells 4.04 10^6/uL (4.5-5.90); Red Cell Distribution Width 14.8 % (11.8-14.3); White Blood Cell 14.2 10^3/uL (4.4-10.8)
[2020-08-13] MEDS: PROPOFOL 100 ML IV SCH ×5 (05:00→20:00)
[2020-08-13] MEDS: METOCLOPRAMIDE HCL 5MG/ml INJ 2ml VIAL IV SCH ×3 (06:00→21:11)
[2020-08-13] MEDS: BUDESONIDE (INHALATION) 0.5 MG/2 ML NEB NEB SCH ×2 (06:43→22:37)
[2020-08-13] MEDS: ALBUTEROL SULF 2.5 MG/0.5ML(0.5%) NEB SOLN NEB PRN (06:43)
[2020-08-13] MEDS: FUROSEMIDE 20 MG/2 ML VIAL IV SCH (08:31)
[2020-08-13] MEDS ORDERED: POTASSIUM CHL 20MEQ/100ML 100 ML IV ONE (08:39)
[2020-08-13] MEDS: DexAMETHasone SOD PHOS 10MG/1ML VIAL INJ IV SCH (08:45)
[2020-08-13] MEDS: POTASSIUM CHL 20MEQ/100ML 100 ML IV SCH ×2 (08:46→11:07)
[2020-08-13] MEDS: PANTOPRAZOLE 40 MG/10 ML VIAL INJ IV SCH (09:38)
[2020-08-13] MEDS: POTASSIUM EFFERVESENT TAB 25 MEQ GT SCH (09:38)
[2020-08-13] MEDS: LACTULOSE 20Gm/30ML SOLN PO SCH (09:38)
[2020-08-13] MEDS: ZINC SULFATE 220mg CAP or TAB PO SCH (09:38)
[2020-08-13] MEDS: ASCORBIC ACID 1,000 MG TAB PO SCH (09:39)
[2020-08-13] MEDS: ENOXAPARIN SOD 80 MG/0.8ML SYRINGE SC SCH ×2 (09:39→21:11)
[2020-08-13] MEDS: FLORASTOR (S. BOULARDII) 250 MG CAP PO SCH (09:39)
[2020-08-13] MEDS: CHOLECALCIFEROL (VITD3) 2,000 UNIT CAP/TAB PO SCH (09:39)
[2020-08-13] MEDS: fentaNYL Drip 2500mCg/250mlNS 250 ML IV SCH ×2 (09:40→17:09)
[2020-08-13] MEDS: ATRACURIUM BESYLATE (10 MG/ ML) 10 ML VIAL IV PRN ×2 (18:19→23:33)
[2020-08-13] MEDS: NOREPINEPHRINE 8 MG/250ML KIT 250 ML IV SCH (20:45)
[2020-08-13] MEDS: DOCUSATE ORAL LIQUID 100 MG/10 ML UD GT SCH (21:11)
[2020-08-13] MEDS: SENNA 8.6 MG TAB PO SCH (21:11)
[2020-08-13] MEDS: ACETAMINOPHEN 500 MG TAB PO PRN (21:35)
[2020-08-14] VITALS (105 sets, daily range): BP systolic 88–159; BP diastolic 41–90
[2020-08-14] MEDS: PROPOFOL 100 ML IV SCH ×7 (00:32→23:00)
[2020-08-14] MEDS: MIDAZOLAM DRIP 50 mg/50mL 50 ML IV SCH ×4 (00:32→23:00)
[2020-08-14] MEDS: LINEZOLID 600MG/300ML 300 ML IV SCH ×2 (03:24→17:13)
[2020-08-14 03:59] LABS: Basophils # (auto) 0.1 10 ^3/uL (0-0.2); Eosinophils # (auto) 1.7 10 ^3/uL (0-0.8); Eosinophils % (auto) 12.7 % (0.0-7.0); Hematocrit 38.4 % (41.0-53.0); Hemoglobin 13.5 g/dL (13.5-17.5); Lymphocytes # (auto) 1.6 10 ^3/uL (0.4-5.4); Lymphocytes % (auto) 12.4 % (10.0-50.0); Mean Corpuscular Hemoglobin 32.8 pg (28.0-32.0); Mean Corpuscular Hgb Conc. 35.1 g/dL (32.0-36.0); Mean Corpuscular Volume 93.5 fL (80.0-100.0); Monocytes # (auto) 0.4 10 ^3/uL (0-1.3); Monocytes % (auto) 3.3 % (0.0-12.0); Neutrophils # (auto) 9.3 10 ^3/uL (1.6-8.6); Neutrophils % (auto) 70.6 % (37.0-80.0); Nucleated Red Blood Cells % 0.3 %; Red Blood Cells 4.11 10^6/uL (4.5-5.90); Red Cell Distribution Width 15.2 % (11.8-14.3); White Blood Cell 13.2 10^3/uL (4.4-10.8)
[2020-08-14] MEDS: MEROPENEM 1GM IVPB 100 ML IV SCH ×3 (04:00→19:47)
[2020-08-14 04:30] LABS: BUN/Creatinine Ratio 14.7; Calcium 7.6 mg/dL (8.5-10.1); Potassium 3.9 mmol/L (3.5-5.1)
[2020-08-14] MEDS: ATRACURIUM BESYLATE (10 MG/ ML) 10 ML VIAL IV PRN (06:00)
[2020-08-14] MEDS: METOCLOPRAMIDE HCL 5MG/ml INJ 2ml VIAL IV SCH ×3 (06:19→21:40)
[2020-08-14] MEDS: ALBUTEROL SULF 2.5 MG/0.5ML(0.5%) NEB SOLN NEB PRN (07:11)
[2020-08-14] MEDS: BUDESONIDE (INHALATION) 0.5 MG/2 ML NEB NEB SCH ×2 (07:11→22:26)
[2020-08-14] MEDS: DexAMETHasone SOD PHOS 10MG/1ML VIAL INJ IV SCH (09:33)
[2020-08-14] MEDS: LACTULOSE 20Gm/30ML SOLN PO SCH (09:33)
[2020-08-14] MEDS: PANTOPRAZOLE 40 MG/10 ML VIAL INJ IV SCH (09:33)
[2020-08-14] MEDS: POTASSIUM EFFERVESENT TAB 25 MEQ GT SCH (09:33)
[2020-08-14] MEDS: FUROSEMIDE 20 MG/2 ML VIAL IV SCH (09:33)
[2020-08-14] MEDS: ENOXAPARIN SOD 80 MG/0.8ML SYRINGE SC SCH ×2 (09:34→21:40)
[2020-08-14] MEDS ORDERED: TPN PER PHARMACY 0 ML IV SCH (09:45)
[2020-08-14] MEDS: FLORASTOR (S. BOULARDII) 250 MG CAP PO SCH (10:00)
[2020-08-14] MEDS ORDERED: ATRACURIUM BESYLATE (10 MG/ ML) 10 ML VIAL IV PRN (10:15)
[2020-08-14 10:39] LABS: INR 1.12 (0.9-1.15)
[2020-08-14 10:49] LABS: Albumin 2.6 g/dL (3.4-5.0); Bilirubin, Direct 0.3 mg/dL (0-0.2); Bilirubin, Total 0.9 mg/dL (0.2-1.0); Magnesium 2.1 mg/dL (1.6-2.6); Phosphorus 2.1 mg/dL (2.5-4.90)
[2020-08-14] MEDS: ATRACURIUM BESYLATE 1,000 MG in D5W 5% 150 ML IV SCH (11:16)
[2020-08-14 12:05] LABS: Total Protein 5.8 g/dL (6.4-8.2)
[2020-08-14 12:07] LABS: Pre Albumin 92.1 mg/dL (20.0-40.0)
[2020-08-14] MEDS ORDERED: SODIUM PHOSPH 24MEQ(18MMOL) IN NS 100 ML IV ONE (12:45)
[2020-08-14] MEDS ORDERED: METOPROLOL TARTRATE 1MG/1ML-5ML VIAL IV ONE (17:15)
[2020-08-14] MEDS: NOREPINEPHRINE 8 MG/250ML KIT 250 ML IV SCH (19:04)
[2020-08-14] MEDS ORDERED: TPN PER PHARMACY IV NR ×9 (20:00)
[2020-08-14] MEDS: DOCUSATE ORAL LIQUID 100 MG/10 ML UD GT SCH (21:40)
[2020-08-14] MEDS: SENNA 8.6 MG TAB PO SCH (21:40)
[2020-08-14] MEDS: SODIUM CHLOR 0.9% PF (SALINE LOCK) 10ML VIAL/SYR IV SCH (22:27)
[2020-08-14] MEDS: fentaNYL Drip 2500mCg/250mlNS 250 ML IV SCH (23:00)
[2020-08-15] VITALS (102 sets, daily range): BP systolic 80–141; BP diastolic 39–88
[2020-08-15] MEDS ORDERED: DEXTROSE (50%) 50ML SYRG IV SCH
[2020-08-15] MEDS: ACCU-CHEK COMFORT CURVE STRIP VI SCH ×5 (00:17→23:54)
[2020-08-15] MEDS: InsuLIN REG 1unit/0.01ml Soln (100units/ml) SC SCH ×5 (00:17→23:53)
[2020-08-15] MEDS: PROPOFOL 100 ML IV SCH ×5 (02:00→21:21)
[2020-08-15] MEDS: LINEZOLID 600MG/300ML 300 ML IV SCH ×2 (02:59→15:00)
[2020-08-15] MEDS: MIDAZOLAM DRIP 50 mg/50mL 50 ML IV SCH ×6 (02:59→21:55)
[2020-08-15] MEDS: MEROPENEM 1GM IVPB 100 ML IV SCH ×3 (04:33→20:57)
[2020-08-15 04:56] LABS: Hematocrit 39.9 % (41.0-53.0); Hemoglobin 13.6 g/dL (13.5-17.5); Mean Corpuscular Hemoglobin 32.7 pg (28.0-32.0); Mean Corpuscular Hgb Conc. 34.2 g/dL (32.0-36.0); Mean Corpuscular Volume 95.8 fL (80.0-100.0); Red Blood Cells 4.16 10^6/uL (4.5-5.90); Red Cell Distribution Width 14.6 % (11.8-14.3); White Blood Cell 18.7 10^3/uL (4.4-10.8)
[2020-08-15 05:02] LABS: Basophils % (manual) 0 (0.0-2.0); Blast Cells 0; Eosinophils % (manual) 0 (0-7); Myelocytes % 0; Promyelocytes % 0; Reactive Lymphocytes 0
[2020-08-15 05:04] LABS: Albumin 2.8 g/dL (3.4-5.0); Bilirubin, Total 2.4 mg/dL (0.2-1.0); Calcium 7.8 mg/dL (8.5-10.1); Magnesium 2.1 mg/dL (1.6-2.6); Phosphorus 4.8 mg/dL (2.5-4.90)
[2020-08-15 05:13] LABS: Potassium 6.5 mmol/L (3.5-5.1)
[2020-08-15 05:24] LABS: Band Neutrophils % (manual) 12; Lymphocytes % (manual) 5 (10.0-50.0); Metamyelocytes % 1; Monocytes % (manual) 3 (0-12)
[2020-08-15 05:30] LABS: BUN/Creatinine Ratio 10.3; Total Protein 6.1 g/dL (6.4-8.2)
[2020-08-15] MEDS ORDERED: CALCIUM GLUC 1,000mg/50ml-NS 50 ML IV ONE (05:30)
[2020-08-15] MEDS ORDERED: ALBUTEROL SULF 2.5 MG/0.5ML(0.5%) NEB SOLN NEB ONE ×2 (05:30→15:45)
[2020-08-15] MEDS ORDERED: InsuLIN REG 1unit/0.01ml Soln (100units/ml) IV ONE (05:30)
[2020-08-15] MEDS ORDERED: SODIUM ZIRCONIUM CYCL 10 GM PAK PO ONE (05:30)
[2020-08-15] MEDS ORDERED: DEXTROSE (50%) 50ML SYRG IV ONE (05:30)
[2020-08-15] MEDS ORDERED: SODIUM BICARBONATE 8.4 % INJ 50ML VIAL IV ONE (05:30)
[2020-08-15] MEDS: METOCLOPRAMIDE HCL 5MG/ml INJ 2ml VIAL IV SCH ×3 (06:05→21:22)
[2020-08-15] MEDS: BUDESONIDE (INHALATION) 0.5 MG/2 ML NEB NEB SCH ×2 (06:44→18:53)
[2020-08-15] MEDS: FLORASTOR (S. BOULARDII) 250 MG CAP PO SCH (10:00)
[2020-08-15] MEDS: LACTULOSE 20Gm/30ML SOLN PO SCH (10:00)
[2020-08-15] MEDS ORDERED: AMINO ACID INFUSION IN D10W 1,000 ML IV NR (10:00)
[2020-08-15] MEDS: SODIUM CHLOR 0.9% PF (SALINE LOCK) 10ML VIAL/SYR IV SCH ×2 (10:00→21:23)
[2020-08-15] MEDS: ENOXAPARIN SOD 80 MG/0.8ML SYRINGE SC SCH ×2 (10:00→21:22)
[2020-08-15] MEDS: SODIUM CHLORIDE 0.9% 1,000 ML IV SCH ×2 (10:28→23:15)
[2020-08-15] MEDS ORDERED: FUROSEMIDE 20 MG/2 ML VIAL ONE (10:38)
[2020-08-15] MEDS ORDERED: FUROSEMIDE 20 MG/2 ML VIAL IV ONE (11:00)
[2020-08-15] MEDS: PANTOPRAZOLE 40 MG/10 ML VIAL INJ IV SCH (11:02)
[2020-08-15] MEDS ORDERED: SODIUM ZIRCONIUM CYCL 10 GM PAK PO SCH (14:00)
[2020-08-15 15:33] LABS: BUN/Creatinine Ratio 9.6; Calcium 7.6 mg/dL (8.5-10.1)
[2020-08-15 15:35] LABS: Potassium 5.7 mmol/L (3.5-5.1)
[2020-08-15] MEDS ORDERED: BUMETANIDE 2.5mg/10ml (0.25 mg/ml) INJ IV ONE (15:45)
[2020-08-15] MEDS: ALBUMIN 25% 50 ML IV SCH ×2 (16:29→23:32)
[2020-08-15] MEDS: ATRACURIUM BESYLATE 1,000 MG in D5W 5% 150 ML IV SCH (17:06)
[2020-08-15] MEDS: NOREPINEPHRINE 8 MG/250ML KIT 250 ML IV SCH (17:18)
[2020-08-15] MEDS ORDERED: TPN PER PHARMACY IV NR ×9 (20:00)
[2020-08-15 21:02] LABS: Calcium 7.4 mg/dL (8.5-10.1); Potassium 4.9 mmol/L (3.5-5.1)
[2020-08-15 21:05] LABS: BUN/Creatinine Ratio 9.8
[2020-08-15] MEDS: SENNA 8.6 MG TAB PO SCH (21:22)
[2020-08-15] MEDS: DOCUSATE ORAL LIQUID 100 MG/10 ML UD GT SCH (21:22)
[2020-08-15] MEDS: fentaNYL Drip 2500mCg/250mlNS 250 ML IV SCH (23:13)
[2020-08-16] VITALS (103 sets, daily range): BP systolic 96–142; BP diastolic 50–79
[2020-08-16] MEDS: PROPOFOL 100 ML IV SCH ×7 (01:52→22:30)
[2020-08-16] MEDS: MIDAZOLAM DRIP 50 mg/50mL 50 ML IV SCH ×5 (02:05→21:40)
[2020-08-16] MEDS: LINEZOLID 600MG/300ML 300 ML IV SCH ×2 (03:08→15:57)
[2020-08-16 04:12] LABS: Basophils # (auto) 0.1 10 ^3/uL (0-0.2); Basophils % (auto) 0.4 % (0.0-2.0); Eosinophils # (auto) 0.5 10 ^3/uL (0-0.8); Eosinophils % (auto) 3.5 % (0.0-7.0); Hematocrit 31.7 % (41.0-53.0); Hemoglobin 10.9 g/dL (13.5-17.5); Lymphocytes # (auto) 0.8 10 ^3/uL (0.4-5.4); Lymphocytes % (auto) 6.4 % (10.0-50.0); Mean Corpuscular Hemoglobin 32.4 pg (28.0-32.0); Mean Corpuscular Hgb Conc. 34.4 g/dL (32.0-36.0); Mean Corpuscular Volume 94.4 fL (80.0-100.0); Monocytes # (auto) 0.8 10 ^3/uL (0-1.3); Monocytes % (auto) 6.2 % (0.0-12.0); Neutrophils % (auto) 83.5 % (37.0-80.0); Red Blood Cells 3.36 10^6/uL (4.5-5.90); Red Cell Distribution Width 14.8 % (11.8-14.3); White Blood Cell 13.2 10^3/uL (4.4-10.8)
[2020-08-16 04:25] LABS: Calcium 7.5 mg/dL (8.5-10.1); Magnesium 1.7 mg/dL (1.6-2.6); Potassium 3.8 mmol/L (3.5-5.1)
[2020-08-16 04:32] LABS: BUN/Creatinine Ratio 9.6; Bilirubin, Total 0.7 mg/dL (0.2-1.0); Total Protein 5.9 g/dL (6.4-8.2)
[2020-08-16] MEDS: MEROPENEM 1GM IVPB 100 ML IV SCH ×2 (05:34→18:24)
[2020-08-16] MEDS: METOCLOPRAMIDE HCL 5MG/ml INJ 2ml VIAL IV SCH ×4 (06:05→21:40)
[2020-08-16] MEDS: ACCU-CHEK COMFORT CURVE STRIP VI SCH ×3 (06:05→18:37)
[2020-08-16] MEDS: InsuLIN REG 1unit/0.01ml Soln (100units/ml) SC SCH ×3 (06:05→18:25)
[2020-08-16] MEDS: ALBUTEROL SULF 2.5 MG/0.5ML(0.5%) NEB SOLN NEB PRN (06:23)
[2020-08-16] MEDS: BUDESONIDE (INHALATION) 0.5 MG/2 ML NEB NEB SCH ×2 (06:23→22:50)
[2020-08-16] MEDS: fentaNYL Drip 2500mCg/250mlNS 250 ML IV SCH ×3 (07:07→22:30)
[2020-08-16] MEDS: ALBUMIN 25% 50 ML IV SCH (08:02)
[2020-08-16] MEDS: LACTULOSE 20Gm/30ML SOLN PO SCH (10:44)
[2020-08-16] MEDS: FLORASTOR (S. BOULARDII) 250 MG CAP PO SCH (10:44)
[2020-08-16] MEDS: PANTOPRAZOLE 40 MG/10 ML VIAL INJ IV SCH (10:44)
[2020-08-16] MEDS: SODIUM CHLOR 0.9% PF (SALINE LOCK) 10ML VIAL/SYR IV SCH ×2 (10:44→21:39)
[2020-08-16] MEDS: FUROSEMIDE 40 MG/4 ML VIAL IV SCH (10:44)
[2020-08-16] MEDS: ENOXAPARIN SOD 80 MG/0.8ML SYRINGE SC SCH (10:45)
[2020-08-16] MEDS: MAGNESIUM SULFATE 1GM/100ML 100 ML IV SCH ×3 (11:28→14:08)
[2020-08-16] MEDS ORDERED: DOPamine 1600MCG/ML D5W 250 ML IV SCH (12:30)
[2020-08-16] MEDS: ATRACURIUM BESYLATE 1,000 MG in D5W 5% 150 ML IV SCH (12:44)
[2020-08-16 13:08] LABS: Creatinine, Urine 42 mg/dL (30.0-125.0); Sodium Urine 54 mmol/L (40-220)
[2020-08-16] MEDS: NOREPINEPHRINE 8 MG/250ML KIT 250 ML IV SCH (15:32)
[2020-08-16] MEDS ORDERED: TPN PER PHARMACY IV NR ×10 (20:00)
[2020-08-16] MEDS: SENNA 8.6 MG TAB PO SCH (21:38)
[2020-08-16] MEDS: DOCUSATE ORAL LIQUID 100 MG/10 ML UD GT SCH (22:00)
[2020-08-17] VITALS (104 sets, daily range): BP systolic 86–105; BP diastolic 39–63
[2020-08-17] MEDS: MIDAZOLAM DRIP 50 mg/50mL 50 ML IV SCH ×6 (01:20→23:12)
[2020-08-17] MEDS: PROPOFOL 100 ML IV SCH ×7 (02:10→22:53)
[2020-08-17] MEDS: LINEZOLID 600MG/300ML 300 ML IV SCH ×2 (03:08→15:00)
[2020-08-17 04:39] LABS: Calcium 7.7 mg/dL (8.5-10.1); Magnesium 3.1 mg/dL (1.6-2.6); Potassium 4.9 mmol/L (3.5-5.1)
[2020-08-17 04:42] LABS: BUN/Creatinine Ratio 10.8; Bilirubin, Total 1.1 mg/dL (0.2-1.0); Phosphorus 6.2 mg/dL (2.5-4.90); Total Protein 6.2 g/dL (6.4-8.2)
[2020-08-17] MEDS: MEROPENEM 1GM IVPB 100 ML IV SCH ×2 (05:30→17:35)
[2020-08-17] MEDS: ACCU-CHEK COMFORT CURVE STRIP VI SCH ×4 (06:00→18:21)
[2020-08-17] MEDS: InsuLIN REG 1unit/0.01ml Soln (100units/ml) SC SCH ×4 (06:00→18:00)
[2020-08-17] MEDS: METOCLOPRAMIDE HCL 5MG/ml INJ 2ml VIAL IV SCH ×3 (06:18→22:26)
[2020-08-17] MEDS: BUDESONIDE (INHALATION) 0.5 MG/2 ML NEB NEB SCH ×2 (06:42→18:43)
[2020-08-17] MEDS: fentaNYL Drip 2500mCg/250mlNS 250 ML IV SCH ×2 (06:51→21:48)
[2020-08-17] MEDS: PANTOPRAZOLE 40 MG/10 ML VIAL INJ IV SCH (12:00)
[2020-08-17] MEDS: LACTULOSE 20Gm/30ML SOLN PO SCH (12:01)
[2020-08-17] MEDS: SODIUM CHLOR 0.9% PF (SALINE LOCK) 10ML VIAL/SYR IV SCH ×2 (12:01→22:26)
[2020-08-17] MEDS: ENOXAPARIN SOD 80 MG/0.8ML SYRINGE SC SCH (12:02)
[2020-08-17] MEDS ORDERED: PHENYLEPHRINE IV 250 ML IV ONE (12:12)
[2020-08-17] MEDS: PHENYLEPHRINE IV 250 ML IV SCH ×3 (12:15→23:13)
[2020-08-17] MEDS: NOREPINEPHRINE 8 MG/250ML KIT 250 ML IV SCH (13:46)
[2020-08-17] MEDS: FUROSEMIDE 40 MG/4 ML VIAL IV SCH (15:01)
[2020-08-17] MEDS: ATRACURIUM BESYLATE 1,000 MG in D5W 5% 150 ML IV SCH (18:27)
[2020-08-17] MEDS ORDERED: TPN PER PHARMACY IV NR ×6 (20:00)
[2020-08-17] MEDS: SENNA 8.6 MG TAB PO SCH (22:00)
[2020-08-17] MEDS: DOCUSATE ORAL LIQUID 100 MG/10 ML UD GT SCH (22:00)
[2020-08-18] VITALS (105 sets, daily range): BP systolic 84–117; BP diastolic 19–65
[2020-08-18] MEDS: VASOPRESSIN 50 UNITS in D5W 5% 247.5 ML IV SCH ×2 (00:30→02:01)
[2020-08-18] MEDS: PHENYLEPHRINE IV 250 ML IV SCH ×2 (01:43→07:45)
[2020-08-18] MEDS ORDERED: VASOPRESSIN 20 UNIT/ML ONE (01:59)
[2020-08-18] MEDS: PROPOFOL 100 ML IV SCH ×4 (02:10→17:38)
[2020-08-18] MEDS: LINEZOLID 600MG/300ML 300 ML IV SCH ×2 (03:16→14:47)
[2020-08-18] MEDS: MIDAZOLAM DRIP 50 mg/50mL 50 ML IV SCH ×3 (03:17→18:27)
[2020-08-18 03:52] LABS: Basophils # (auto) 0.3 10 ^3/uL (0-0.2); Basophils % (auto) 1.8 % (0.0-2.0); Eosinophils # (auto) 0.1 10 ^3/uL (0-0.8); Eosinophils % (auto) 0.4 % (0.0-7.0); Hemoglobin 11.1 g/dL (13.5-17.5); Lymphocytes # (auto) 0.9 10 ^3/uL (0.4-5.4); Lymphocytes % (auto) 4.4 % (10.0-50.0); Mean Corpuscular Hgb Conc. 32.8 g/dL (32.0-36.0); Mean Corpuscular Volume 97.6 fL (80.0-100.0); Monocytes # (auto) 1.5 10 ^3/uL (0-1.3); Monocytes % (auto) 7.7 % (0.0-12.0); Neutrophils # (auto) 16.6 10 ^3/uL (1.6-8.6); Neutrophils % (auto) 85.7 % (37.0-80.0); Nucleated Red Blood Cells % 0.3 %; Red Blood Cells 3.48 10^6/uL (4.5-5.90); Red Cell Distribution Width 15.8 % (11.8-14.3); White Blood Cell 19.4 10^3/uL (4.4-10.8)
[2020-08-18] MEDS ORDERED: SODIUM BICARBONATE 8.4 % INJ 50ML VIAL IV ONE ×2 (04:10→04:15)
[2020-08-18] MEDS ORDERED: SODIUM BICARBONATE 8.4% INJ 50ML SYRINGE ONE (04:10)
[2020-08-18] MEDS ORDERED: SODIUM BICARBONATE 50ML VIAL 50 ML in D5W 5% 1,000 ML IV ONE (04:15)
[2020-08-18 04:16] LABS: Albumin 2.9 g/dL (3.4-5.0); BUN/Creatinine Ratio 11.4; Bilirubin, Total 1.4 mg/dL (0.2-1.0); Calcium 7.8 mg/dL (8.5-10.1); Magnesium 2.9 mg/dL (1.6-2.6); Phosphorus 6.5 mg/dL (2.5-4.90); Total Protein 6.2 g/dL (6.4-8.2)
[2020-08-18 04:22] LABS: Potassium 5.8 mmol/L (3.5-5.1)
[2020-08-18] MEDS ORDERED: DEXTROSE (50%) 50ML SYRG IV ONE (04:30)
[2020-08-18] MEDS ORDERED: InsuLIN REG 1unit/0.01ml Soln (100units/ml) IV ONE (04:30)
[2020-08-18] MEDS ORDERED: ALBUTEROL SULF 2.5 MG/0.5ML(0.5%) NEB SOLN NEB ONE (04:30)
[2020-08-18] MEDS ORDERED: SODIUM ZIRCONIUM CYCL 10 GM PAK PO ONE (04:30)
[2020-08-18] MEDS: MEROPENEM 1GM IVPB 100 ML IV SCH ×2 (05:00→17:00)
[2020-08-18] MEDS: InsuLIN REG 1unit/0.01ml Soln (100units/ml) SC SCH ×2 (06:00)
[2020-08-18] MEDS: ACCU-CHEK COMFORT CURVE STRIP VI SCH ×2 (06:00)
[2020-08-18] MEDS: METOCLOPRAMIDE HCL 5MG/ml INJ 2ml VIAL IV SCH ×3 (06:29→21:22)
[2020-08-18] MEDS: BUDESONIDE (INHALATION) 0.5 MG/2 ML NEB NEB SCH ×2 (07:23→18:50)
[2020-08-18 08:58] LABS: BUN/Creatinine Ratio 11.5; Calcium 7.8 mg/dL (8.5-10.1); Potassium 5.2 mmol/L (3.5-5.1)
[2020-08-18] MEDS ORDERED: BUMETANIDE 2.5mg/10ml (0.25 mg/ml) INJ IV ONE (09:45)
[2020-08-18] MEDS: LACTULOSE 20Gm/30ML SOLN PO SCH (10:00)
[2020-08-18] MEDS: PANTOPRAZOLE 40 MG/10 ML VIAL INJ IV SCH (10:00)
[2020-08-18] MEDS: SODIUM CHLOR 0.9% PF (SALINE LOCK) 10ML VIAL/SYR IV SCH ×2 (10:00→21:24)
[2020-08-18] MEDS: ENOXAPARIN SOD 80 MG/0.8ML SYRINGE SC SCH (10:00)
[2020-08-18] MEDS: ATRACURIUM BESYLATE 1,000 MG in D5W 5% 150 ML IV SCH ×2 (11:00→20:00)
[2020-08-18] MEDS: PHENYLEPHRINE INJ 80 MG in SODIUM CHL 0.9% 242 ML IV SCH ×2 (11:25→18:27)
[2020-08-18] MEDS: fentaNYL Drip 2500mCg/250mlNS 250 ML IV SCH ×2 (12:12→20:00)
[2020-08-18] MEDS: BUMETANIDE 2.5mg/10ml (0.25 mg/ml) INJ IV SCH (17:37)
[2020-08-18] MEDS ORDERED: TPN PER PHARMACY IV NR ×7 (20:00)
[2020-08-18] MEDS: SENNA 8.6 MG TAB PO SCH (21:22)
[2020-08-18] MEDS: DOCUSATE ORAL LIQUID 100 MG/10 ML UD GT SCH (21:23)
[2020-08-19] VITALS (46 sets, daily range): BP systolic 67–101; BP diastolic 14–57
[2020-08-19] MEDS: PROPOFOL 100 ML IV SCH ×5 (00:05→11:54)
[2020-08-19] MEDS: MIDAZOLAM DRIP 50 mg/50mL 50 ML IV SCH ×4 (00:50→11:55)
[2020-08-19] MEDS: LINEZOLID 600MG/300ML 300 ML IV SCH (03:20)
[2020-08-19 03:45] LABS: Basophils # (auto) 1.1 10 ^3/uL (0-0.2); Basophils % (auto) 5.1 % (0.0-2.0); Eosinophils # (auto) 0.1 10 ^3/uL (0-0.8); Eosinophils % (auto) 0.3 % (0.0-7.0); Hematocrit 31.5 % (41.0-53.0); Hemoglobin 10.5 g/dL (13.5-17.5); Lymphocytes # (auto) 1.2 10 ^3/uL (0.4-5.4); Lymphocytes % (auto) 5.7 % (10.0-50.0); Mean Corpuscular Hemoglobin 32.6 pg (28.0-32.0); Mean Corpuscular Hgb Conc. 33.3 g/dL (32.0-36.0); Mean Corpuscular Volume 97.9 fL (80.0-100.0); Monocytes # (auto) 1.8 10 ^3/uL (0-1.3); Monocytes % (auto) 8.6 % (0.0-12.0); Neutrophils # (auto) 16.9 10 ^3/uL (1.6-8.6); Neutrophils % (auto) 80.3 % (37.0-80.0); Nucleated Red Blood Cells % 0.2 %; Red Blood Cells 3.22 10^6/uL (4.5-5.90); Red Cell Distribution Width 16.2 % (11.8-14.3); White Blood Cell 21.1 10^3/uL (4.4-10.8)
[2020-08-19 04:12] LABS: Albumin 2.7 g/dL (3.4-5.0); BUN/Creatinine Ratio 11.7; Bilirubin, Total 1.2 mg/dL (0.2-1.0); Calcium 7.8 mg/dL (8.5-10.1)
[2020-08-19 04:34] LABS: Potassium 6.2 mmol/L (3.5-5.1)
[2020-08-19] MEDS: BUMETANIDE 2.5mg/10ml (0.25 mg/ml) INJ IV SCH (05:53)
[2020-08-19] MEDS: MEROPENEM 1GM IVPB 100 ML IV SCH (05:53)
[2020-08-19] MEDS: METOCLOPRAMIDE HCL 5MG/ml INJ 2ml VIAL IV SCH ×2 (05:54→14:00)
[2020-08-19] MEDS: BUDESONIDE (INHALATION) 0.5 MG/2 ML NEB NEB SCH (06:21)
[2020-08-19] MEDS ORDERED: ALBUTEROL SULF 2.5 MG/0.5ML(0.5%) NEB SOLN NEB ONE (08:45)
[2020-08-19] MEDS ORDERED: CALCIUM GLUC 1,000mg/50ml-NS 50 ML IV ONE (08:45)
[2020-08-19] MEDS ORDERED: SODIUM BICARBONATE 8.4% INJ 50ML SYRINGE IV ONE (08:45)
[2020-08-19] MEDS: ENOXAPARIN SOD 80 MG/0.8ML SYRINGE SC SCH (09:53)
[2020-08-19] MEDS: SODIUM CHLOR 0.9% PF (SALINE LOCK) 10ML VIAL/SYR IV SCH (09:53)
[2020-08-19] MEDS: LACTULOSE 20Gm/30ML SOLN PO SCH (09:53)
[2020-08-19] MEDS: PANTOPRAZOLE 40 MG/10 ML VIAL INJ IV SCH (09:53)
[2020-08-19] MEDS: PHENYLEPHRINE INJ 80 MG in SODIUM CHL 0.9% 242 ML IV SCH (10:07)
[2020-08-19] MEDS: fentaNYL Drip 2500mCg/250mlNS 250 ML IV SCH (11:32)
[2020-08-19] MEDS ORDERED: LORazepam 2MG/ML-1ML VIAL ONE (14:43)
[2020-08-19] MEDS ORDERED: MORPHINE SULFATE INJECTION 2 MG/ML SYRG ONE (14:44)
[2020-08-19] MEDS ORDERED: MORPHINE SULFATE INJECTION 2 MG/ML SYRG IV PRN (14:45)
[2020-08-19] MEDS ORDERED: LORazepam 2MG/ML-1ML VIAL IV PRN (14:45)
== END 2020-08-19 18:11 | DRG 130 ==
LOC: ER 12:35 → EDBD 12:35 → TELE 14:44 → ICU WEST 23:09
PROVIDERS: ADMIT Nurse Practitioner Acute Care; ATTEND Internal Medicine Pulmonary Disease
PROC: 5A1955Z Respiratory Ventilation, Greater than 96 Consecutive Hours (ICD-10-PCS; principal; 2020-07-21)
PROC: 0BH17EZ Insertion of Endotracheal Airway into Trachea, Via Natural or Artificial Opening (ICD-10-PCS; 2020-07-21)
PROC: XW033E5 Introduction of Remdesivir Anti-infective into Peripheral Vein, Percutaneous Approach, New Technology Group 5 (ICD-10-PCS; 2020-07-21)
PROC: XW033H5 Introduction of Tocilizumab into Peripheral Vein, Percutaneous Approach, New Technology Group 5 (ICD-10-PCS; 2020-07-21)
PROC: XW13325 Transfusion of Convalescent Plasma (Nonautologous) into Peripheral Vein, Percutaneous Approach, New Technology Group 5 (ICD-10-PCS; 2020-08-08)
PROC: 02HV33Z Insertion of Infusion Device into Superior Vena Cava, Percutaneous Approach (ICD-10-PCS; 2020-08-14)
PROC: B548ZZA Ultrasonography of Superior Vena Cava, Guidance (ICD-10-PCS; 2020-08-14)
DX: U07.1 COVID-19 (principal); J12.82 Pneumonia due to coronavirus disease 2019; R65.21 Severe sepsis with septic shock; N17.0 Acute kidney failure with tubular necrosis; J81.0 Acute pulmonary edema; A41.9 Sepsis, unspecified organism; D89.839 Cytokine release syndrome, grade unspecified; E87.5 Hyperkalemia; J80 Acute respiratory distress syndrome; Z99.11 Dependence on respirator [ventilator] status; R04.2 Hemoptysis; E44.0 Moderate protein-calorie malnutrition; Z51.5 Encounter for palliative care; Z66 Do not resuscitate; G83.9 Paralytic syndrome, unspecified; J98.2 Interstitial emphysema; Z68.30 Body mass index [BMI] 30.0-30.9, adult
CPT/HCPCS: 36415; 36569; 36600; 71045; 71275; 74018; 80048; 80053; 80076; 81001; 82040; 82570; 82728; 82805; 82962; 83036; 83605; 83615; 83735; 83880; 84100; 84300; 84443; 84478; 84484; 85007; 85025; 85027; 85379; 85610; 85730; 86141; 86850; 86900; 86901; 87040; 87070; 87077; 87081; 87086; 87186; 87205; 87426; 93005; 94002; 94003; 94640; 96360; 99291; C9113; G0378; J0330; J1100; J1815; J2185; J2250; J2543; J2704; J3480; J7042; J7060; J7131